=== PATIENT | female | born 1960 | race Asian ===

== ENCOUNTER → 2017-10-08 | Outpatient (CLI) | payer OTHER ==
--- NOTE | 2017-10-08 09:58 | WOMENS IMAGING REPORT ---
EXAM DESCRIPTION: BONE DENSITY HIP/SPINE COMPLETED DATE/TIME: 10/08/2017 9:08 am REASON FOR STUDY: SCREENING FOR OSTEOPROSIS; Z13.820 Z13.820 ENCOUNTER FOR SCREENING FOR OSTEOPOROS IS COMPARISON: None. TECHNIQUE: Dual-Energy X-ray Absorptiometry (DEXA) of the AP Spine, Hip, and Forearm. LIMITATIONS: None. FINDINGS: LUMBAR SPINE: Not imaged. Prior lumbar fusion. HIP: The bone mineral density (BMD) measured in the left hip correlates with a T-score of -0.1, which is n ormal as defined by the World Health Organization. FOREARM: The bone mineral density (BMD) measured in the left forearm correlates with a T-score of -1.6 which i s osteopenia as defined by the World Health Organization. IMPRESSION: 1. LUMBAR SPINE: Not imaged. 2. HIP: NORMAL. 3. FOREARM: OSTEOPENIA. COMMENT: The World Health Organization defines low BMD as follows: T-score: Normal: Greater than -1.0 Osteopenia: Between -1.0 and -2.5 Osteoporosis: Less than -2.5 without fractures Established osteoporosis: Less than -2.5 with fractures In general, you may wish to consider: Diagnosis Treatment Follow-up DEXA Normal BMD Prevention 2-3 years Osteopenia Prevention/Therapy 1-2 years Osteoporosis Therapy Yearly TECHNICAL DOCUMENTATION: JOB ID: [id number] [employer]- All Rights Reserved Reading location - IP/workstation name: [email or web address]
== END ==
LOC: WI 08:45
PROVIDERS: ATTEND Family Medicine
DX: Z13.820 Encounter for screening for osteoporosis (principal); M85.832 Other specified disorders of bone density and structure, left forearm
CPT/HCPCS: 77080

== ENCOUNTER 2017-10-20 14:21 | Emergency (ER) | payer OTHER ==
[2017-10-20] MEDS ORDERED: ONDANSETRON 4 MG TAB.RAPDIS PO ONE (16:27)
--- NOTE | 2017-10-20 16:28 | ER Document Report ---
ED Medical Screen (RME) - General Chief Complaint: Urinary Frequency Stated Complaint: FLANK PAIN Time Seen by Provider: 10/20/17 16:25 Notes: RAPID MEDICAL EVALUATION DISCLOSURE I have seen this patient as part of a Rapid Medical Evaluation and, if applicable, placed any initially appropriate orders. The patient will be seen and fully evaluated, including a full history and physical exam, by a provider ( in Main ED or Fast Track) when a room becomes available. 56-year-old female PMH pyelonephritis kidney stones here with complaints of right flank pain started several days ago with dysuria and urinary frequency nausea but no vomiting. She did see some blood in the urine today. EXAM No CVA tenderness Minimal lower quadrant TTP TRAVEL OUTSIDE OF THE U.S. IN LAST 30 DAYS: No - Related Data Allergies/Adverse Reactions: Sulfa (Sulfonamide Antibiotics) Allergy (Verified 10/20/17 16:18) Past Medical History - Social History Chew tobacco use (# tins/day): No Frequency of alcohol use: None Drug Abuse: None Renal/ Medical History: Denies: Hx Peritoneal Dialysis Physical Exam - Vital signs Vitals: Temp Pulse Resp BP Pulse Ox 98.6 F 69 16 148/71 H 97 10/20/17 14:42 10/20/17 14:42 10/20/17 14:42 10/20/17 14:42 10/20/17 14:42 Course - Vital Signs Vital signs: Temp Pulse Resp BP Pulse Ox 98.6 F 69 16 148/71 H 97 10/20/17 14:42 10/20/17 14:42 10/20/17 14:42 10/20/17 14:42 10/20/17 14:42
[2017-10-20 17:35] LABS: APPEARANCE,URINE CLEAR; BILIRUBIN,URINE NEGATIVE (NEGATIVE); COLOR,URINE STRAW; GLUCOSE, URINE NEGATIVE (NEGATIVE); KETONES,URINE NEGATIVE (NEGATIVE); LEUKOCYTE ESTERASE,URINE NEGATIVE (NEGATIVE); NITRITE,URINE NEGATIVE (NEGATIVE); PROTEIN,URINE NEGATIVE (NEGATIVE); URINE SPECIFIC GRAVITY 1.006; UROBILINOGEN,URINE NEGATIVE mg/dL (<2.0)
[2017-10-20 17:40] LABS: ABSOLUTE EOSINOPHILS # (AUTO) 0.1 10^3/uL (0.0-0.6); ABSOLUTE MONOCYTES (AUTO) 0.5 10^3/uL (0.1-1.4); ABSOLUTE NEUT (AUTO) 4.2 10^3/uL (1.7-8.2); BASOPHILS % (AUTO) 0.3 % (0-2); EOSINOPHILS % (AUTO) 1.7 % (0-6); HEMATOCRIT 44.5 % (36.0-47.0); HEMOGLOBIN 15.1 g/dL (12.0-15.5); LYMPHOCYTES % (AUTO) 37.8 % (13-45); MEAN CORPUSCULAR HEMOGLOBIN 29.7 pg (27.0-33.4); MEAN CORPUSCULAR HGB CONC 33.9 g/dL (32.0-36.0); MEAN CORPUSCULAR VOLUME 88 fl (80-97); MONOCYTES % (AUTO) 6.7 % (3-13); PLATELET COUNT 226 10^3/uL (150-450); RED BLOOD COUNT 5.09 10^6/uL (3.72-5.28); RED CELL DISTRIBUTION WIDTH 13.2 % (11.5-14.0); SEGMENTED NEUTROPHILS % (AUTO) 53.5 % (42-78); TOTAL CELLS COUNTED % (AUTO) 100 %; WHITE BLOOD COUNT 7.9 10^3/uL (4.0-10.5)
[2017-10-20 17:52] LABS: ALANINE AMINOTRANSFERASE 45 U/L (9-52); ALBUMIN 4.3 g/dL (3.5-5.0); ALKALINE PHOSPHATASE 99 U/L (38-126); ANION GAP 14 (5-19); ASPARTATE AMINO TRANSFERASE 37 U/L (14-36); BILIRUBIN,DIRECT 0.3 mg/dL (0.0-0.4); BILIRUBIN,TOTAL 0.6 mg/dL (0.2-1.3); BLOOD UREA NITROGEN 11 mg/dL (7-20); CALCIUM 9.8 mg/dL (8.4-10.2); CARBON DIOXIDE 31 mmol/L (22-30); CHLORIDE 98 mmol/L (98-107); GLUCOSE 88 mg/dL (75-110); POTASSIUM 4.5 mmol/L (3.6-5.0); SODIUM 142.6 mmol/L (137-145); TOTAL PROTEIN 7.7 g/dL (6.3-8.2)
--- NOTE | 2017-10-20 20:06 | ER Document Report ---
ED General - General Chief Complaint: Urinary Frequency Stated Complaint: FLANK PAIN Time Seen by Provider: 10/20/17 16:25 Notes: 56-year-old female PMH pyelonephritis kidney stones here with complaints of right flank pain started several days ago with dysuria and urinary frequency nausea but no vomiting. She did see some blood in the urine as well. She saw her PCP in [place] (she is moving here) who prescribed her Vicodin. TRAVEL OUTSIDE OF THE U.S. IN LAST 30 DAYS: No - Related Data Allergies/Adverse Reactions: Sulfa (Sulfonamide Antibiotics) Allergy (Verified 10/20/17 16:18) Past Medical History - Social History Smoking Status: Never Smoker Chew tobacco use (# tins/day): No Frequency of alcohol use: None Drug Abuse: None Family History: Reviewed & Not Pertinent Patient has suicidal ideation: No Patient has homicidal ideation: No Renal/ Medical History: Denies: Hx Peritoneal Dialysis Review of Systems - Review of Systems Notes: See history of present illness for pertinent positive review of systems; otherwise all review of systems have been reviewed and are negative Physical Exam - Vital signs Vitals: Temp Pulse Resp BP Pulse Ox 98.6 F 69 16 148/71 H 97 10/20/17 14:42 10/20/17 14:42 10/20/17 14:42 10/20/17 14:42 10/20/17 14:42 - Notes Notes: PHYSICAL EXAMINATION: GENERAL: Well-appearing and in no acute distress. HEAD: Atraumatic, normocephalic. EYES: Pupils equal round and reactive to light, extraocular movements intact, sclera anicteric, conjunctiva are normal. ENT: nares patent, oropharynx clear without exudates. Moist mucous membranes. NECK: Normal range of motion, supple without lymphadenopathy LUNGS: CTAB and equal. No wheezes rales or rhonchi. HEART: Regular rate and rhythm without murmurs ABDOMEN: Soft, minimal suprapubic tenderness. No CVA tenderness. No facial grimacing/wincing upon palpation. No guarding, no rebound or other peritoneal signs. EXTREMITIES: Normal range of motion, no pitting edema. No cyanosis. NEUROLOGICAL: Cranial nerves grossly intact. Normal sensory/motor exams. PSYCH: Normal mood, normal affect. SKIN: Warm, Dry, normal turgor, no rashes or lesions noted Course - Re-evaluation Re-evalutation: 10/20/17 20:06 MEDICAL DECISION MAKING: Concern for pyelonephritis versus ureteral calculi versus musculoskeletal strain Results reviewed there is no leukocytosis hemoglobin is normal electrolytes show normal creatinine urinalysis with blood but no infection I do not feel a CT is needed given her prior history of stones however I did offer the patient renal noncontrast CT but she declines She does not want any further pain medication and since she already has a prescription for Vicodin, will prescribe Flomax Zofran Instructed follow-up urology next day or few Patient understands and agrees to the plan of care - Vital Signs Vital signs: Temp Pulse Resp BP Pulse Ox 98.0 F 74 18 147/87 H 98 10/20/17 19:53 10/20/17 19:53 10/20/17 19:53 10/20/17 19:53 10/20/17 19:53 - Laboratory Result Diagrams: 10/20/17 17:10 10/20/17 17:10 Laboratory results interpreted by me: 10/20/17 10/20/17 14:43 17:10 Carbon Dioxide 31 H Creatinine 0.50 L AST 37 H Urine Blood SMALL H Discharge - Discharge Clinical Impression: Hematuria Qualifiers: Hematuria type: unspecified type Qualified Code(s): R31.9 - Hematuria, unspecified Condition: Good Disposition: HOME, SELF-CARE Additional Instructions: You were seen in the emergency department at [facility]. Use the Zofran as needed for nausea/vomiting. The Flomax will help to open up the ureteral tube. Please followup with your primary physician and/or urologist in the next few days for further management/evaluation. Please return to the emergency department for worsening of symptoms or any symptom that you deem to be concerning or life-threatening. Thank you for allowing us to be part of your care. Prescriptions: Ondansetron [Zofran Odt 4 mg Tablet] 1 - 2 tab PO Q4HP PRN #10 tab.rapdis PRN Reason: Tamsulosin HCl [Flomax 0.4 mg Cap.sr] 0.4 mg PO DAILY #7 cap.sr.24h Referrals: RITESH MARINO MD [DEDRICK SIDHU] - Follow up tomorrow
[2017-10-20 20:28] VITALS: BP 139/81
== END 2017-10-20 20:30 | disposition home or self-care (01) ==
LOC: ER 14:21
DX: R31.0 Gross hematuria (principal); R35.0 Frequency of micturition; R30.0 Dysuria; R11.0 Nausea; R10.819 Abdominal tenderness, unspecified site; Z87.440 Personal history of urinary (tract) infections; Z87.442 Personal history of urinary calculi; Z88.2 Allergy status to sulfonamides
CPT/HCPCS: 36415; 80053; 81001; 83690; 85025; 87086; 99284

== ENCOUNTER 2017-12-24 09:38 | Observation (INO) | payer OTHER ==
[2017-12-24] MEDS ORDERED: ASPIRIN 81 MG TABLET, CHEWABLE PO ONE (09:54)
--- NOTE | 2017-12-24 09:56 | ER Document Report ---
ED Medical Screen (RME) - General Chief Complaint: Chest Pain Stated Complaint: CHEST PAIN Time Seen by Provider: 12/24/17 09:54 Notes: 56 years old female with a history of hypertension, multiple PVCs, on metoprolol , was scheduled for stress test this morning, metoprolol was discontinued this morning. Around 630 she was starting to have chest pain intensity of 3/4 and 10. Persistent, increased in intensity on exertion therefore present to the ED. She also feeling multiple episodes of palpitation due to PVCs. Denies any left arm numbness tingling sensation nausea or vomiting. But short of breath on exertion. No fever chills or other constitutional symptoms On examination obesity-no reproducible chest wall pain lungs appears clear Electrocardiogram shows sinus rhythm at the rate of 80 bpm multiple PVCs, left axis deviation, no acute ST elevation or ST depression. TRAVEL OUTSIDE OF THE U.S. IN LAST 30 DAYS: No - Related Data Allergies/Adverse Reactions: Sulfa (Sulfonamide Antibiotics) Allergy (Verified 12/24/17 09:39) Past Medical History Renal/ Medical History: Denies: Hx Peritoneal Dialysis Doctor's Discharge - Discharge Referrals: KISHA DE LA TORRE MD [Primary Care Provider] - Follow up as needed
[2017-12-24] MEDS ORDERED: NITROGLYCERIN 2% OINTMENT 1 GM PACKET TP ONE (10:01)
[2017-12-24 10:22] LABS: ABSOLUTE EOSINOPHILS # (AUTO) 0.1 10^3/uL (0.0-0.6); ABSOLUTE LYMPHOCYTES (AUTO) 2.7 10^3/uL (0.5-4.7); ABSOLUTE MONOCYTES (AUTO) 0.5 10^3/uL (0.1-1.4); ABSOLUTE NEUT (AUTO) 5.6 10^3/uL (1.7-8.2); BASOPHILS % (AUTO) 0.4 % (0-2); EOSINOPHILS % (AUTO) 0.7 % (0-6); HEMATOCRIT 45.4 % (36.0-47.0); HEMOGLOBIN 15.5 g/dL (12.0-15.5); LYMPHOCYTES % (AUTO) 30.9 % (13-45); MEAN CORPUSCULAR HEMOGLOBIN 30.1 pg (27.0-33.4); MEAN CORPUSCULAR HGB CONC 34.2 g/dL (32.0-36.0); MEAN CORPUSCULAR VOLUME 88 fl (80-97); MONOCYTES % (AUTO) 5.1 % (3-13); PLATELET COUNT 239 10^3/uL (150-450); RED BLOOD COUNT 5.15 10^6/uL (3.72-5.28); RED CELL DISTRIBUTION WIDTH 13.2 % (11.5-14.0); SEGMENTED NEUTROPHILS % (AUTO) 62.9 % (42-78); TOTAL CELLS COUNTED % (AUTO) 100 %; WHITE BLOOD COUNT 8.9 10^3/uL (4.0-10.5)
[2017-12-24] MEDS ORDERED: METOPROLOL SUCCINATE 25 MG TAB.SR.24H PO ONE (10:33)
--- NOTE | 2017-12-24 10:39 | ER Document Report ---
ED Cardiac - General Chief Complaint: Chest Pain Stated Complaint: CHEST PAIN Time Seen by Provider: 12/24/17 09:54 Information source: Patient Notes: Patient is a 56-year-old female that presents today with some chest pain and palpitations. Patient states she has had this complaint for around 15 years. She states she only had one stress test without a cardiac catheterization 12 years ago. Patient recently moved here from [place] and saw a [facility] spectacle truer Dr. Amaral. She was on a Holter monitor for 3 weeks and found to have multiple PVCs. They increased her metoprolol from 25 mg in the morning to 25 mg in the morning and 12.5 mg at night. She was scheduled to have a stress test and an echocardiogram this morning. She was told to hold her morning dose of medications including a beta-jory. While she was getting ready for the test she told the technician test systems she was having some chest discomfort and the technician test systems did not perform the test and sent the patient to the emergency room. Patient states a maximum of 4 out of 10. No radiation. No aggravating or relieving factors. No calf pain, leg swelling, cough, shortness of breath, recent trips or travel. TRAVEL OUTSIDE OF THE U.S. IN LAST 30 DAYS: No - HPI Patient complains to provider of: Other - See above Was the onset of pain: Gradual Is the pain a: Chronic problem Chest pain location: Substernal Quality of pain: Mild, Cramping Chest pain radiation location: None Severity now: Mild Severity at worst: Mild Pain level currently: 2 Positive cardiac history: No Associated symptoms: Other - See above Exacerbated by: Denies Relieved by: Nothing Similar symptoms previously: Yes Recently seen / treated by doctor: Yes - Related Data Allergies/Adverse Reactions: Sulfa (Sulfonamide Antibiotics) Allergy (Verified 12/24/17 09:39) Past Medical History - General Information source: Patient - Social History Smoking Status: Never Smoker Cigarette use (# per day): No Chew tobacco use (# tins/day): No Smoking Education Provided: No Frequency of alcohol use: None Family History: Reviewed & Not Pertinent Renal/ Medical History: Denies: Hx Peritoneal Dialysis Review of Systems - Review of Systems Constitutional: denies: Fever EENT: denies: Eye discharge, Nose discharge Respiratory: denies: Short of breath Gastrointestinal: denies: Vomiting Genitourinary: denies: Dysuria Musculoskeletal: denies: Leg swelling Skin: Other - no hives. denies: Rash Neurological/Psychological: Other - no slurred speech -: Yes All other systems reviewed and negative Physical Exam - Vital signs Vitals: Pulse Ox 98 12/24/17 09:54 Interpretation: Normal Notes: Reviewed vital signs and nursing note as charted by RN. CONSTITUTIONAL: Alert and oriented and responds appropriately to questions. Well -appearing; well-nourished HEAD: Normocephalic; atraumatic NECK: Supple without meningismus; non-tender; no cervical lymphadenopathy, no masses CARD: Irregularly irregular; no murmurs, no clicks, no rubs, no gallops; symmetric distal pulses RESP: Normal chest excursion without splinting or tachypnea; breath sounds clear and equal bilaterally ABD/GI: Normal bowel sounds; elevated BMI; soft, non-tender BACK: The back appears normal and is non-tender to palpation EXT: Normal ROM in all joints; non-tender to palpation; no edema SKIN: Normal color for age and race; warm; dry; no acute lesions noted NEURO: Moves all extremities equally; Motor and sensory function intact PSYCH: The patient's mood and manner are appropriate. Grooming and personal hygiene are appropriate. Course - Re-evaluation Re-evalutation: 12/24/17 10:39 Given the history and physical examination we will place the patient on the monitor, obtain an EKG, provide aspirin, nitroglycerin, and the patient's morning dose of medications, and reassess. I do believe pulmonary embolism and aortic dissection to be unlikely. 12/24/17 10:41 EKG shows a heart of 80, normal sinus rhythm, left axis deviation, poor R-wave progression, PVC present, LVH present, no ST elevation or depression 12/24/17 11:16 I called the [place] office and was told he was in [place]. I called the [place] office and was told he was at [facility]. I have now called [facility]. 12/24/17 11:36 I have spoken directly with Dr. Amaral. He has asked that I admit the patient to the hospitalist with cardiology consultation here with the possibility of a stress test to be performed tomorrow morning at the patient has been ruled out. Dr. Amaral states that on the Holter monitor the patient had nonsustained episodes of ventricular tachycardia. I have called Dr. Mays our spectacle truer here as well as the hospitalist to admit the pt. - Vital Signs Vital signs: Temp Pulse Resp BP Pulse Ox 98 12/24/17 09:54 - Laboratory Result Diagrams: 12/24/17 10:05 12/24/17 10:05 Laboratory results interpreted by me: 12/24/17 10:05 Sodium 148.4 H Carbon Dioxide 32 H Glucose 112 H Discharge - Discharge Clinical Impression: Chest pain Qualifiers: Chest pain type: unspecified Qualified Code(s): R07.9 - Chest pain, unspecified Condition: Fair Disposition: ADMITTED OBSERVATION Admitting Provider: Hospitalist Unit Admitted: Telemetry Referrals: KISHA DE LA TORRE MD [Primary Care Provider] - Follow up as needed
[2017-12-24 10:41] LABS: ALANINE AMINOTRANSFERASE 33 U/L (9-52); ALBUMIN 4.4 g/dL (3.5-5.0); ALKALINE PHOSPHATASE 73 U/L (38-126); ANION GAP 15 (5-19); ASPARTATE AMINO TRANSFERASE 28 U/L (14-36); BILIRUBIN,DIRECT 0.3 mg/dL (0.0-0.4); BILIRUBIN,TOTAL 0.7 mg/dL (0.2-1.3); BLOOD UREA NITROGEN 15 mg/dL (7-20); CALCIUM 10.1 mg/dL (8.4-10.2); CARBON DIOXIDE 32 mmol/L (22-30); CHLORIDE 101 mmol/L (98-107); CREATINE KINASE 37 U/L (30-135); GLUCOSE 112 mg/dL (75-110); POTASSIUM 4.2 mmol/L (3.6-5.0); SODIUM 148.4 mmol/L (137-145); TOTAL PROTEIN 8.1 g/dL (6.3-8.2)
[2017-12-24 10:54] LABS: CREATINE KINASE MB 0.27 ng/mL (<4.55)
[2017-12-24 10:55] LABS: TROPONIN I < 0.012 ng/mL
--- NOTE | 2017-12-24 11:27 | RADIOLOGY REPORT (SQ) ---
EXAM DESCRIPTION: CHEST SINGLE VIEW COMPLETED DATE/TIME: 12/24/2017 11:19 am REASON FOR STUDY: Chest pain COMPARISON: None. EXAM PARAMETERS: NUMBER OF VIEWS: One view. TECHNIQUE: Single frontal radiographic view of the chest acquired. RADIATION DOSE: NA LIMITATIONS: None. FINDINGS: LUNGS AND PLEURA: No opacities, masses or pneumothorax. No pleural effusion. MEDIASTINUM AND HILAR STRUCTURES: No masses. Contour normal. HEART AND VASCULAR STRUCTURES: Heart normal in size. Normal vasculature. BONES: No acute findings. HARDWARE: None in the chest. OTHER: No other significant finding. IMPRESSION: NO ACUTE RADIOGRAPHIC FINDING IN THE CHEST. TECHNICAL DOCUMENTATION: JOB ID: [id number] [employer]- All Rights Reserved Reading location - IP/workstation name: [email or web address]
[2017-12-24] MEDS ORDERED: NITROGLYCERIN 0.4 MG/TAB 25 TAB/BOTTLE SL PRN (13:20)
[2017-12-24 14:38] LABS: AMORPHOUS SEDIMENT,URINE TRACE /HPF; APPEARANCE,URINE CLOUDY; BILIRUBIN,URINE NEGATIVE (NEGATIVE); COLOR,URINE YELLOW; GLUCOSE, URINE NEGATIVE (NEGATIVE); KETONES,URINE NEGATIVE (NEGATIVE); LEUKOCYTE ESTERASE,URINE NEGATIVE (NEGATIVE); NITRITE,URINE NEGATIVE (NEGATIVE); PROTEIN,URINE NEGATIVE (NEGATIVE); URINE SPECIFIC GRAVITY 1.023; UROBILINOGEN,URINE NEGATIVE mg/dL (<2.0)
[2017-12-24 15:09] LABS: CHOLESTEROL 237.87 mg/dL (0-200); TRIGLYCERIDES 182 mg/dL (<150)
--- NOTE | 2017-12-24 15:13 | EKG REPORT ---
SEVERITY:- ABNORMAL ECG - SINUS RHYTHM MULTIPLE VENTRICULAR PREMATURE COMPLEXES LEFT AXIS DEVIATION LEFT VENTRICULAR HYPERTROPHY : Confirmed by: Marilyn Rivera MD 24-Dec-2017 15:11:52
[2017-12-24 15:20] LABS: DIRECT LDL 142 mg/dL (<100)
[2017-12-24 15:23] LABS: VLDL CHOLESTEROL 36.4 mg/dL (10-31)
[2017-12-24 15:50] LABS: NT PRO BNP 80 pg/mL (5-900)
[2017-12-24 15:57] LABS: TROPONIN I < 0.012 ng/mL
[2017-12-24] MEDS: ACETAMINOPHEN 325 MG TABLET PO PRN (17:18)
[2017-12-24] MEDS ORDERED: MORPHINE SULFATE 10 MG/ML INJ IV PRN (18:28)
[2017-12-24] MEDS ORDERED: LANSOPRAZOLE 30 MG TAB.RAP.DR PO ONE (19:00)
[2017-12-24] MEDS ORDERED: ALPRAZOLAM 0.5 MG TABLET PO PRN (19:04)
--- NOTE | 2017-12-24 19:04 | PDOC H&P ---
History of Present Illness Admission Date/PCP: 12/24/17 12:10 KISHA DE LA TORRE MD Patient complains of: CHEST PAIN History of Present Illness: LEILA HIGGINS is a 56 year old female who presented to the emergency department with chest pain. She was scheduled for a routine stress test this morning, she was instructed not to take her morning dose of metoprolol. 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 This prompted the medical staff at the statistics teacher's office to send the patient to [facility] ED. PMH includes HTN and HLD. Patient recently moved to [place] from [place]. She established care with [facility]. Recently was wearing Holter monitor for palpitations, was wearing the monitor for approx. [address] Amaral states that on the Holter monitor the patient had nonsustained episodes of ventricular tachycardia. Her Metoprolol was increased from 25mg PO daily to 25mg PO QAM /12.5 mg PO QHS. Upon arrival to the ED, the patient was treated with PO aspirin 325mg, SL Nitro , and given her home dose of Metoprolol 25mg. EKG demonstrated NSR, no evidence of ischemia or infarction. Troponin<0.012. All other lab work benign. Vital signs wee within normal limits. CXR benign. The patient endorses chest pain relief after medications. Cardiology was consulted, plan for inpatient stress test and ECHOcardiogram tomorrow. Admit to hospitalist service for chest pain. Past Medical History Cardiac Medical History: Reports: Hyperlipidema, Hypertension Denies: Congestive Heart Failure, Myocardial Infarction Pulmonary Medical History: Denies: Asthma, Bronchitis, Chronic Obstructive Pulmonary Disease (COPD), Pneumonia, Tuberculosis Neurological Medical History: Denies: Seizures Renal/ Medical History: Denies: End Stage Renal Disease GI Medical History: Reports: Gastroesophageal Reflux Disease Denies: Cirrhosis Musculoskeltal Medical History: Denies: Arthritis Psychiatric Medical History: Reports: Depression Denies: Bipolar Disorder Hematology: Denies: Anemia, Bleeding Tendencies Past Surgical History Past Surgical History: Reports: Cholecystectomy, Hysterectomy, Other - HERNIA REPAIR. ECTOPIC . Social History Information Source: Patient Lives with: Family Smoking Status: Former Smoker Frequency of Alcohol Use: Rare Hx Recreational Drug Use: No Drugs: None Hx Prescription Drug Abuse: No - Advance Directive Resuscitation Status: Full Code Family History Family History: CAD Parental Family History Reviewed: Yes Children Family History Reviewed: Yes Sibling(s) Family History Reviewed.: Yes Medication/Allergy Home Medications: Aspirin [Adult Low Dose Aspirin EC] 81 mg PO QA 12/24/17 Ergocalciferol (Vitamin D2) [Drisdol 50,000 unit (1.25MG) Capsule] 50,000 unit PO TU 12/24/17 Hydrochlorothiazide [Hydrodiuril 25 mg Tablet] 25 mg PO QA 12/24/17 Hydrocodone/Acetaminophen [Purcell 5-325 Tablet] 1 tab PO BIDP PRN 12/24/17 Metoprolol Succinate [Toprol Xl 25 mg Tab.sr] 12.5 mg PO QPM 12/24/17 Metoprolol Succinate [Toprol Xl 25 mg Tab.sr] 25 mg PO [facility] 12/24/17 Omeprazole Magnesium [Prilosec Otc] 20 mg PO DAILYP PRN 12/24/17 Allergies/Adverse Reactions: Sulfa (Sulfonamide Antibiotics) Allergy (Verified 12/24/17 09:39) Review of Systems All systems: reviewed and no additional remarkable complaints except as stated Physical Exam Vital Signs: Temp Pulse Resp BP Pulse Ox 97.7 F 75 18 112/64 97 12/24/17 15:59 12/24/17 15:59 12/24/17 15:59 12/24/17 15:59 12/24/17 15:59 General appearance: PRESENT: no acute distress, morbidly obese Eye exam: PRESENT: conjunctiva pink, PERRLA Mouth exam: PRESENT: moist Teeth exam: PRESENT: poor dentation Neck exam: PRESENT: full ROM Respiratory exam: PRESENT: clear to auscultation mayuri, symmetrical, unlabored Cardiovascular exam: PRESENT: RRR, +S1, +S2 Pulses: PRESENT: normal radial pulses, normal dorsalis pedis pul GI/Abdominal exam: PRESENT: normal bowel sounds, soft. ABSENT: tenderness Rectal exam: PRESENT: deferred Extremities exam: PRESENT: full ROM. ABSENT: joint swelling Musculoskeletal exam: PRESENT: ambulatory, full ROM Neurological exam: PRESENT: alert, awake, oriented to person, oriented to place , oriented to time, oriented to situation Psychiatric exam: PRESENT: appropriate affect Skin exam: PRESENT: intact, normal color, warm Results Laboratory Results: 12/24/17 14:12 Urine Color YELLOW Urine Appearance CLOUDY Urine pH 6.0 Ur Specific [place] 1.023 Urine Protein NEGATIVE Urine Glucose (UA) NEGATIVE Urine Ketones NEGATIVE Urine Blood NEGATIVE Urine Nitrite NEGATIVE Ur Leukocyte Esterase NEGATIVE Urine WBC (Auto) 1 Urine RBC (Auto) 1 12/24/17 12/24/17 14:05 15:07 Troponin I Cancelled < 0.012 NT-Pro-B Natriuret Pep Cancelled 80 Impressions: Chest X-Ray 12/24/17 09:54 IMPRESSION: NO ACUTE RADIOGRAPHIC FINDING IN THE CHEST. Status: Imported from PACS Assessment & Plan - Diagnosis (1) Chest pain Qualifiers: Chest pain type: unspecified Qualified Code(s): R07.9 - Chest pain, unspecified Is this a current diagnosis for this admission?: Yes Plan: Unclear etiology, could be secondary to HTN, anxiety, arrythmia, palpitations Troponin < 0.012, continue to trend q6h x 3 EKG shows NSR no ischemia or infarction CXR benign Cardiology consulted ECHOcardiogram pending Plan for stress test tomorrow Aspirin therapy Home dose anti-HTN Treat atypical causes of chest pain: zantac BID for reflux. Xanax PRN for anxiety. Flexeril and tylenol PRN for musclular pain. (2) HTN (hypertension) Qualifiers: Hypertension type: essential hypertension Qualified Code(s): I10 - Essential (primary) hypertension Is this a current diagnosis for this admission?: Yes Plan: Patient endorses history of HTN Continue home dose metoprolol (3) HLD (hyperlipidemia) Is this a current diagnosis for this admission?: Yes Plan: Patient endorses history of HLD Unable to tolerate statin, managing with diet Lipid panel in a.m. - Time Time Spent: 30 to 50 Minutes Medications reviewed and adjusted accordingly: Yes Anticipated discharge: Home Within: within 72 hours - Inpatient Certification Based on my medical assessment, after consideration of the patient's comorbidities, presenting symptoms, or acuity I expect that the services needed warrant INPATIENT care.: Yes I certify that my determination is in accordance with my understanding of Medicare's requirements for reasonable and necessary INPATIENT services [42 CFR 412.3e].: Yes Medical Necessity: Risk of Complication if Not Cared For in Hospital - Plan Summary Plan Summary: ECHO AND STRESS TEST TOMORROW
[2017-12-24] MEDS ORDERED: CYCLOBENZAPRINE HCL 10 MG TABLET PO PRN (19:05)
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
[2017-12-24] MEDS: PANTOPRAZOLE SODIUM 40 MG VIAL IV SCH (22:01)
[2017-12-24] MEDS: METOPROLOL SUCCINATE 25 MG TAB.SR.24H PO SCH (22:02)
[2017-12-25 05:05] LABS: HEMATOCRIT 40.1 % (36.0-47.0); HEMOGLOBIN 13.5 g/dL (12.0-15.5); MEAN CORPUSCULAR HEMOGLOBIN 29.7 pg (27.0-33.4); MEAN CORPUSCULAR HGB CONC 33.8 g/dL (32.0-36.0); MEAN CORPUSCULAR VOLUME 88 fl (80-97); PLATELET COUNT 195 10^3/uL (150-450); RED BLOOD COUNT 4.55 10^6/uL (3.72-5.28); RED CELL DISTRIBUTION WIDTH 13.4 % (11.5-14.0); WHITE BLOOD COUNT 6.8 10^3/uL (4.0-10.5)
[2017-12-25 05:18] LABS: ALANINE AMINOTRANSFERASE 31 U/L (9-52); ALBUMIN 3.6 g/dL (3.5-5.0); ALKALINE PHOSPHATASE 71 U/L (38-126); ANION GAP 12 (5-19); ASPARTATE AMINO TRANSFERASE 28 U/L (14-36); BILIRUBIN,DIRECT 0.3 mg/dL (0.0-0.4); BILIRUBIN,TOTAL 0.5 mg/dL (0.2-1.3); BLOOD UREA NITROGEN 18 mg/dL (7-20); CALCIUM 9.1 mg/dL (8.4-10.2); CARBON DIOXIDE 27 mmol/L (22-30); CHLORIDE 105 mmol/L (98-107); CHOLESTEROL 208.52 mg/dL (0-200); GLUCOSE 103 mg/dL (75-110); SODIUM 143.8 mmol/L (137-145); TOTAL PROTEIN 6.9 g/dL (6.3-8.2); TRIGLYCERIDES 145 mg/dL (<150)
[2017-12-25 05:32] LABS: DIRECT LDL 122 mg/dL (<100)
[2017-12-25] MEDS: LANSOPRAZOLE 30 MG TAB.RAP.DR PO SCH ×2 (06:15→17:23)
--- NOTE | 2017-12-25 07:53 | EKG REPORT ---
SEVERITY:- ABNORMAL ECG - SINUS RHYTHM FIRST DEGREE AV BLOCK PROBABLE LEFT ATRIAL ABNORMALITY LEFT AXIS DEVIATION CONSIDER ANTEROSEPTAL INFARCT : Confirmed by: Marilyn Rivera MD 25-Dec-2017 07:52:25
[2017-12-25] MEDS: ACETAMINOPHEN 325 MG TABLET PO PRN (11:35)
[2017-12-25] MEDS: PANTOPRAZOLE SODIUM 40 MG VIAL IV SCH ×2 (11:35→21:21)
[2017-12-25] MEDS: ASPIRIN 81 MG TABLET, CHEWABLE PO SCH (11:35)
[2017-12-25] MEDS: METOPROLOL SUCCINATE 25 MG TAB.SR.24H PO SCH ×2 (11:36→21:22)
[2017-12-25] MEDS: ENOXAPARIN SODIUM INJ 30 MG/0.3 ML DISP.SYRIN SUBCUT SCH (11:36)
[2017-12-25] MEDS ORDERED: REGADENOSON INJ 0.4 MG/5 ML DISP.SYRIN IV ONE (12:43)
--- NOTE | 2017-12-25 18:44 | DRAGON STRESS TEST REPORT ---
INTRAVENOUS LEXISCAN CARDIOLITE STRESS TEST USING SINGLE PHOTON EMMISION COMPUTERIZED TOMOGRAPHIC. DATE OF PROCEDURE: December 25, 2017, INDICATION : Chest pain CARDIAC RISK FACTORS: Hypertension, dyslipidemia, family history of CAD RESTING EKG: Sinus rhythm without any baseline ST-T wave changes STRESS EKG: No significant ST segment changes noted with LexiScan bolus REASON FOR TERMINATION: Protocol. PROCEDURE REPORT: Baseline heart rate 71 beats per minute with blood pressure of 120/69. Patient had no significant complaints. Patient was bolused with Lexiscan 0.4 mg intravenously followed by saline bolus. Heart rate at 2 minutes post bolus 90 with a blood pressure of 129/60. 3 minutes post bolus heart rate 90 with blood pressure of 109/71. No significant EKG changes were noted. Patient had no significant complaints during the procedure or postprocedure. CONCLUSIONS: Normal EKG and hemodynamic response to IV LexiScan. NUCLEAR DATA: At rest the patient was given 14.88 millicuries of technetium 99 sestamibi injected intravenously. As per protocol rest gated SPECT images were obtained. On day of stress test, the patient was given intravenous LexiScan at a dose of 0.4 mg in 5 mL intravenously, followed by flush with normal saline. Subsequently the stress dose of 41.7 millicuries of technetium 99 sestamibi was injected intravenously. As per protocol stress gated images were obtained. NUCLEAR INTERPRETATION: Both raw and processed data were used for interpretation. Visual, qualitative, computer-generated quantitative data was used. Quality of images was somewhat suboptimal. Images were processed without attenuation correction. Motion artifact and soft tissue attenuations were noted. Increased visceral uptake was noted. Also significant breast attenuation artifacts were noted. No definitive areas of transient perfusion defect noted, No definitive areas of fixed perfusion defect or scars noted. There was mild decreased uptake was noted in the distal anterior wall in both rest and stress images but felt to be mostly artifactual. EKG gated imaging showed LV EF at 55 %, rest and stress gated EF similar visually. T. I D. ratio was 0.95. Lung heart ratio noted to be within normal limits 0.37. No significant extracardiac and abnormal radiotracer activities were noted. RV free wall uptake was noted to be WNL. IMPRESSION: Also refer to comments under nuclear interpretation. Also test results needs to be interpreted in the context of pretest probability. Image quality is somewhat suboptimal and not motion or attenuation corrected. Clinical correlation is therefore requested. 1. No definitive areas of transient perfusion defect noted. 2. There is no definitive scintigraphic evidence of myocardial infarction/scar. 3. EKG gated imaging shows left ventricular ejection fraction of approx. 55 %. 4. Clinical correlation requested as occasionally single vessel disease or balanced ischemia could be missed. In approximately 10% of the cases Lexiscan may not cause adequate vasodilatory stress. RECOMMENDATIONS: Aggressive risk factor modification and medical management. Further evaluation may be needed if continued symptoms or other high risk indicators are noted on clinical evaluation. Close cardiology follow-up is also recommended. Clinical correlation with echocardiogram derived ejection fraction. Inability to exercise by itself can lead to increased cardiovascular event risks. Consider cardiology consultation and or follow-up if clinically indicated. 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 Dr. Misti Mays. MRCP Board certified in cardiology and sleep medicine. Board certified in nuclear cardiology, adult echocardiography. BENITA
--- NOTE | 2017-12-25 18:47 | PDOC PROGRESS REPORT ---
Subjective Progress Note for:: 12/25/17 Subjective:: 56 y.o. F with PMH HTN and GERD admitted to [facility] for chest pain. Patient was seen this morning following her stress test. The patient states that she has no chest pain today following administration of her morning dose of Zantac and one IV dose of Protonix. The patient endorses a history of GERD but states she only takes Prevacid as needed. Upon assessment, S1S2, lungs clear to auscultation, palpable pulses in upper and lower extremities, no evidence of peripheral edema. Mild tenderness to the epigastric area, but patient reports history of hiatal hernia. Currently awaiting results of today's stress test and echocardiogram. If negative, plan to discharge home within 24 hours. Reason For Visit: CHEST PAIN Physical Exam Vital Signs: Temp Pulse Resp BP Pulse Ox 97.6 F 67 19 101/74 97 12/25/17 15:27 12/25/17 15:27 12/25/17 15:27 12/25/17 15:27 12/25/17 15:27 Intake & Output 12/24/17 12/25/17 12/26/17 06:59 06:59 06:59 Intake Total 200 551 Balance 200 551 Weight 105.4 kg General appearance: PRESENT: no acute distress, well-developed, well-nourished Head exam: PRESENT: atraumatic, normocephalic Eye exam: PRESENT: conjunctiva pink, EOMI, PERRLA. ABSENT: scleral icterus Ear exam: PRESENT: normal external ear exam Mouth exam: PRESENT: moist, tongue midline Neck exam: ABSENT: carotid bruit, JVD, lymphadenopathy, thyromegaly Respiratory exam: PRESENT: clear to auscultation mayuri. ABSENT: rales, rhonchi, wheezes Cardiovascular exam: PRESENT: RRR. ABSENT: diastolic murmur, rubs, systolic murmur Pulses: PRESENT: normal dorsalis pedis pul Vascular exam: PRESENT: normal capillary refill GI/Abdominal exam: PRESENT: normal bowel sounds, soft, tenderness - TO EPIGASTRIC AREA. PATIENT REPORTS HISTORY OF HIATAL HERNIA. ABSENT: distended, guarding, mass, organolmegaly, rebound Rectal exam: PRESENT: deferred Extremities exam: PRESENT: full ROM. ABSENT: calf tenderness, clubbing, pedal edema Neurological exam: PRESENT: alert, awake, oriented to person, oriented to place , oriented to time, oriented to situation Psychiatric exam: PRESENT: appropriate affect, normal mood Skin exam: PRESENT: dry, intact, warm Results Laboratory Results: 12/25/17 04:02 12/25/17 04:02 12/25/17 12/25/17 12/25/17 04:02 04:02 04:02 WBC 6.8 RBC 4.55 Hgb 13.5 Hct 40.1 MCV 88 MCH 29.7 MCHC 33.8 RDW 13.4 Plt Count 195 Sodium 143.8 Potassium 4.0 Chloride 105 Carbon Dioxide 27 Anion Gap 12 BUN 18 Creatinine 0.57 Est GFR ( Amer) > 60 Est GFR (Non-Af Amer) > 60 Glucose 103 Calcium 9.1 Total Bilirubin 0.5 AST 28 ALT 31 Alkaline Phosphatase 71 Total Protein 6.9 Albumin 3.6 Triglycerides 145 Cholesterol 208.52 H LDL Cholesterol Direct 122 H VLDL Cholesterol 29.0 HDL Cholesterol 41 TSH 1.53 12/24/17 12/24/17 12/24/17 14:05 15:07 21:55 Troponin I Cancelled < 0.012 < 0.012 NT-Pro-B Natriuret Pep Cancelled 80 12/25/17 04:02 Troponin I NT-Pro-B Natriuret Pep 46 Impressions: Chest X-Ray 12/24/17 09:54 IMPRESSION: NO ACUTE RADIOGRAPHIC FINDING IN THE CHEST. Status: Imported from PACS Assessment & Plan - Diagnosis (1) Chest pain Qualifiers: Chest pain type: unspecified Qualified Code(s): R07.9 - Chest pain, unspecified Is this a current diagnosis for this admission?: Yes Plan: Unclear etiology, could be secondary to HTN, anxiety, arrythmia, palpitations Troponin < 0.012, cno longer trending EKG shows NSR no ischemia or infarction CXR benign Cardiology consulted ECHOcardiogram pending Stress test complete, results pending Aspirin therapy Home dose anti-HTN Treat atypical causes of chest pain: zantac BID for reflux. Xanax PRN for anxiety. Flexeril and tylenol PRN for musclular pain. (2) HTN (hypertension) Qualifiers: Hypertension type: essential hypertension Qualified Code(s): I10 - Essential (primary) hypertension Is this a current diagnosis for this admission?: Yes Plan: Patient endorses history of HTN Continue home dose metoprolol (3) HLD (hyperlipidemia) Is this a current diagnosis for this admission?: Yes Plan: Patient endorses history of HLD Unable to tolerate statin, managing with diet Lipid panel in a.m. - Time Time Spent with patient: 15-24 minutes Medications reviewed and adjusted accordingly: Yes Anticipated discharge: Home Within: within 24 hours - Inpatient Certification Based on my medical assessment, after consideration of the patient's comorbidities, presenting symptoms, or acuity I expect that the services needed warrant INPATIENT care.: Yes I certify that my determination is in accordance with my understanding of Medicare's requirements for reasonable and necessary INPATIENT services [42 CFR 412.3e].: Yes Medical Necessity: Risk of Complication if Not Cared For in Hospital
--- NOTE | 2017-12-25 20:38 | PDOC PROGRESS REPORT ---
Subjective Progress Note for:: 12/25/17 Subjective:: Patient seems to be doing better with gradual improvement. Pt is denying any chest arm or neck discomfort. Patient denying any PND, orthopnea. Patient denied any sustained palpitations, dizziness, syncope, near syncope. Patient denying any fever chills. Patient denying any other significant discomfort. Patient is maintaining sinus rhythm. Review of systems: Rest review of systems negative. Medications: Medications have been reviewed. Reason For Visit: CHEST PAIN Physical Exam Vital Signs: Temp Pulse Resp BP Pulse Ox 97.7 F 65 16 115/79 95 12/25/17 19:41 12/25/17 19:41 12/25/17 19:41 12/25/17 19:41 12/25/17 19:41 Intake & Output 12/24/17 12/25/17 12/26/17 06:59 06:59 06:59 Intake Total 200 551 Balance 200 551 Weight 105.4 kg Exam: GENERAL: well-nourished and in no acute distress. Alert and oriented x3 HEAD: Atraumatic, normocephalic. EYES: Pupils equal round and reactive to light, extraocular movements intact, sclera anicteric, conjunctiva are normal. ENT: TMs normal, nares patent, oropharynx clear without exudates. Moist mucous membranes. No oral ulcerations or bleeding gums noted NECK: supple without lymphadenopathy. Trachea is central. No cervical or axillary lymphadenopathy noted. Carotids are 2+, JVD WNL LUNGS: Respiration seems nonlabored, no significant accessory muscle action noted. Breath sounds clear to auscultation bilaterally and equal noted. No wheezes rales or rhonchi noted. No significant dullness noted on percussion. CHEST: Palpation of the chest wall shows no significant chest wall tenderness. 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 ABDOMEN: Soft, no significant tenderness appreciated, normoactive bowel sounds. No guarding, no rebound. No rigidity noted . No masses appreciated. EXTREMITIES: Pedal pulses are 1-2+, no calf tenderness noted. No clubbing or cyanosis. negative pedal edema noted NEUROLOGICAL: Focused neurological exam showed no significant neurologic deficit. Normal speech, no focal weakness appreciated. PSYCH: Normal mood, normal affect. Judgment and insight within normal limits. SKIN: No significant ecchymosis, skin is noted to be warm. MUSCULOSKELETAL EXAM: No significant acute joint swelling noted. Results Laboratory Results: 12/25/17 04:02 12/25/17 04:02 12/25/17 12/25/17 12/25/17 04:02 04:02 04:02 WBC 6.8 RBC 4.55 Hgb 13.5 Hct 40.1 MCV 88 MCH 29.7 MCHC 33.8 RDW 13.4 Plt Count 195 Sodium 143.8 Potassium 4.0 Chloride 105 Carbon Dioxide 27 Anion Gap 12 BUN 18 Creatinine 0.57 Est GFR ( Amer) > 60 Est GFR (Non-Af Amer) > 60 Glucose 103 Calcium 9.1 Total Bilirubin 0.5 AST 28 ALT 31 Alkaline Phosphatase 71 Total Protein 6.9 Albumin 3.6 Triglycerides 145 Cholesterol 208.52 H LDL Cholesterol Direct 122 H VLDL Cholesterol 29.0 HDL Cholesterol 41 TSH 1.53 12/24/17 12/24/17 12/24/17 14:05 15:07 21:55 Troponin I Cancelled < 0.012 < 0.012 NT-Pro-B Natriuret Pep Cancelled 80 12/25/17 04:02 Troponin I NT-Pro-B Natriuret Pep 46 EKG Comments: Telemetry shows sinus rhythm without any sustained tachycardia or bradycardia. Impressions: Chest X-Ray 12/24/17 09:54 IMPRESSION: NO ACUTE RADIOGRAPHIC FINDING IN THE CHEST. Assessment & Plan - Diagnosis (1) Chest pain Qualifiers: Chest pain type: unspecified Qualified Code(s): R07.9 - Chest pain, unspecified Is this a current diagnosis for this admission?: Yes (2) Gastroesophageal reflux disease Qualifiers: Esophagitis presence: esophagitis presence not specified Qualified Code(s) : K21.9 - Gastro-esophageal reflux disease without esophagitis Is this a current diagnosis for this admission?: Yes (3) Obesity Qualifiers: Obesity type: unspecified obesity type Obesity classification: unspecified obesity classification Serious obesity comorbidity presence: unspecified whether serious comorbidity present Qualified Code(s): E66.9 - Obesity, unspecified Is this a current diagnosis for this admission?: Yes (4) HLD (hyperlipidemia) Qualifiers: Hyperlipidemia type: unspecified Qualified Code(s): E78.5 - Hyperlipidemia , unspecified Is this a current diagnosis for this admission?: Yes (5) HTN (hypertension) Qualifiers: Hypertension type: essential hypertension Qualified Code(s): I10 - Essential (primary) hypertension Is this a current diagnosis for this admission?: Yes - Notes Notes: Chest pain: This was evaluated with a nuclear stress test. No significant ischemia noted. No definite fixed defect noted. Nuclear image quality was somewhat suboptimal. Patient chest pain resolved with IV Protonix therefore likely to be related to gastroesophageal reflux. Patient should follow-up with her primary care mortgage loan originator and further management plans could be instituted by the mortgage loan originator. At this point patient is being advised aggressive risk factor modification and medical management. Blood pressure goal in this patient is 140/90 or less. This was discussed with the patient. Currently blood pressure under reasonable control. Better medication for this patient are CHARO inhibitor/ARB/beta jory etc. discussed side effects of uncontrolled hypertension and also severe hypotension. Hyperlipidemia: LDL goal is less than 70. Recommend statin therapy at least intermediate or high dose, of high potency status. Periodic lipid panel and liver panel is indicated. Patient to report any significant muscle discomfort or other side effects. Gastroesophageal reflux: Patient has this condition. Recommend proton pump inhibitor, weight loss, small meals etc. Obesity: Patient advised in gradual weight loss. - Time Time with patient: Greater than 35 minutes - Patient was seen multiple times. Total time exceeds 40 minutes. In the morning nuclear stress test procedure, risks benefits, alternatives were discussed. Patient seen during the stress test. Patient also seen after stress test when results were discussed with the patient in detail. Patient's questions were answered. Nuclear stress test results were discussed with the patient. Patient was informed that no definitive evidence of pharmacologic stress-induced ischemia noted. No definite fixed defects were noted. Patient informed that occasionally significant single vessel disease or balanced ischemia could be missed. However based on the current study results, would recommend aggressive risk factor modification and medical therapy. It may also be worthwhile to consider evaluation or empiric management of other causes of chest pain. Should no other cause be found and if persistent in having chest pain, then cardiac catheterization should be considered. Right now, recommendations are for aggressive risk factor modification and medical management. More than 50% of the time spent coordinating care, discussing management plans with involved caregivers. Management plans discussed with involved personnels. Medical decision making was of moderate to high complexity, patient's has multiple comorbidities. Medications reviewed and adjusted accordingly: Yes
[2017-12-26] MEDS: LANSOPRAZOLE 30 MG TAB.RAP.DR PO SCH (05:04)
[2017-12-26] MEDS ORDERED: LANSOPRAZOLE 30 MG TAB.RAP.DR PO ONE (09:30)
--- NOTE | 2017-12-26 09:50 | XCELERA REPORT ---
[address] [address] Transthoracic Echocardiogram Report Name: LEILA HIGGINS Age: 56 yrs Gender: Female : 1960 Patient Status: Inpatient Patient Location: [address] [place] [address] Study Date: 12/25/2017 03:38 PM Procedure: A complete two-dimensional transthoracic echocardiogram was performed (2D, M-mode, spectral and color flow Doppler). The study was technically difficult with many images being suboptimal in quality. Reason For Study: cp Ordering Physician: JARETH MICHAUD Performed By: Pamela Bach Interpretation Summary The left ventricular ejection fraction is normal. Doppler measurements suggest impaired left ventricular relaxation, which is associated with grade I/IV or mild diastolic dysfunction There is borderline concentric left ventricular hypertrophy. The left ventricle is grossly normal size. Wall motion cannot be accurately commented on, but no definite regional wall motion abnormalities noted. The right ventricular systolic function is normal. The right ventricle is borderline dilated. The right atrium is normal in size The left atrial size is normal. There is no mitral regurgitation noted. There is no mitral valve stenosis. No aortic regurgitation is present. There is no aortic valve stenosis No tricuspid regurgitation. There is no tricuspid stenosis. The aortic root is not well visualized but is probably normal size. The inferior vena cava was not well visualized There is no pericardial effusion. MMode/2D Measurements & Calculations RVDd: 2.6 cm LVIDd: 6.0 cm FS: 39.2 % Ao root diam: 2.2 cm IVSd: 0.84 cm LVIDs: 3.6 cm EDV(Teich): 177.6 mlAo root area: 3.8 cm2 LVPWd: 0.73 cmESV(Teich): 55.4 ml EF(Teich): 68.8 % LVOT diam: 1.5 cm LVOT area: 1.7 cm2 Doppler Measurements & Calculations MV E max tomer: MV dec slope: Ao V2 max: LV V1 max P.7 cm/sec 179.5 cm/sec 3.0 mmHg MV A max tomer: 288.0 cm/sec2 Ao max PG: LV V1 max: 115.5 cm/sec MV dec time: 12.9 mmHg 86.0 cm/sec MV E/A: 0.79 0.32 sec ANILA(V,D): 0.82 cm2 PA V2 max: 92.1 cm/sec PA max P.4 mmHg Left Ventricle The left ventricle is grossly normal size. There is borderline concentric left ventricular hypertrophy. The left ventricular ejection fraction is normal. Doppler measurements suggest impaired left ventricular relaxation, which is associated with grade I/IV or mild diastolic dysfunction. Wall motion cannot be accurately commented on, but no definite regional wall motion abnormalities noted. Right Ventricle The right ventricle is borderline dilated. There is normal right ventricular wall thickness. The right ventricular systolic function is normal. Atria The right atrium is normal in size. The left atrial size is normal. Interarterial septum not well visualized and not well dopplered. Cannot comment on ASD/PFO presence. Mitral Valve The mitral valve is grossly normal. There is no mitral valve stenosis. There is no mitral regurgitation noted. Aortic Valve The aortic valve is not well visualized secondary to technical limitations. There is no aortic valve stenosis. No aortic regurgitation is present. Tricuspid Valve The tricuspid valve is not well visualized secondary to technical limitations. There is no tricuspid stenosis. No tricuspid regurgitation. Pulmonic Valve The pulmonic valve is not well visualized. Great Vessels The aortic root is not well visualized but is probably normal size. The inferior vena cava was not well visualized. Effusions There is no pericardial effusion. : JARETH MICHAUD > Jareth Michaud
[2017-12-26] MEDS: ASPIRIN 81 MG TABLET, CHEWABLE PO SCH (10:38)
[2017-12-26] MEDS: METOPROLOL SUCCINATE 25 MG TAB.SR.24H PO SCH (10:38)
[2017-12-26] MEDS: PANTOPRAZOLE SODIUM 40 MG VIAL IV SCH (10:39)
[2017-12-26] MEDS: ENOXAPARIN SODIUM INJ 30 MG/0.3 ML DISP.SYRIN SUBCUT SCH (10:39)
[2017-12-26 11:29] VITALS: BP 112/59
--- NOTE | 2017-12-26 18:40 | PDOC CONSULTATION ---
Consultation Consult Date: 12/24/17 Attending physician:: VANGIE DEAN Consult reason:: CP History of Present Illness Admission Date/PCP: 12/24/17 12:10 KISHA DE LA TORRE MD Patient complains of: Chest pain History of Present Illness: LEILA HIGGINS is a 56 year old female who presented to the emergency department with chest pain. She was scheduled for a routine stress test this morning, she was instructed not to take her morning dose of metoprolol. The patient showed up to her accounts specialist's office complaining of shortness of breath and chest tightness. This prompted the medical staff at the accounts specialist's office to send the patient to [facility] ED. PMH includes HTN and HLD. Patient recently moved to [place] from [place]. She established care with PHYLLIS Hwang Draw Frame Tender. Recently was wearing Holter monitor for palpitations, was wearing the monitor for approx. [address] Amaral states that on the Holter monitor the patient had nonsustained episodes of ventricular tachycardia. Her Metoprolol was increased from 25mg PO daily to 25mg PO QAM /12.5 mg PO QHS. Upon arrival to the ED, the patient was treated with PO aspirin 325mg, SL Nitro , and given her home dose of Metoprolol 25mg. EKG demonstrated NSR, no evidence of ischemia or infarction. Troponin<0.012. All other lab work benign. Vital signs wee within normal limits. CXR benign. The patient endorses chest pain relief after medications. Cardiology was consulted, plan for inpatient stress test and ECHOcardiogram tomorrow. Admit to hospitalist service for chest pain. This history obtained by the hospitalist was reviewed and confirmed. Patient describes that she was having some arrhythmias on the cardiac monitoring but not sure what kind. Patient denied any episodes of syncope, near syncope. Patient was actually in the nuclear stress department at the hospital initially and then sent over to the emergency room because of complaints of chest pain. Patient denies any prior history of myocardial infarction, angina, congestive heart failure but does give history of arrhythmias and significant problems with heartburn. Past Medical History Cardiac Medical History: Reports: Hyperlipidema, Hypertension Denies: Congestive Heart Failure, Myocardial Infarction Pulmonary Medical History: Denies: Asthma, Bronchitis, Chronic Obstructive Pulmonary Disease (COPD), Pneumonia, Tuberculosis Neurological Medical History: Denies: Seizures Renal/ Medical History: Denies: End Stage Renal Disease GI Medical History: Reports: Gastroesophageal Reflux Disease Denies: Cirrhosis Musculoskeltal Medical History: Denies: Arthritis Psychiatric Medical History: Reports: Depression Denies: Bipolar Disorder Hematology: Denies: Anemia, Bleeding Tendencies Past Surgical History Past Surgical History: Reports: Cholecystectomy, Hysterectomy, Other - HERNIA REPAIR. ECTOPIC . Social History Information Source: Patient Lives with: Family Smoking Status: Former Smoker Frequency of Alcohol Use: Rare Hx Recreational Drug Use: No Drugs: None Hx Prescription Drug Abuse: No - Advance Directive Resuscitation Status: Full Code Surrogate healthcare decision maker:: Patient's daughter is the surrogate decision-maker Family History Family History: CAD Parental Family History Reviewed: Yes Children Family History Reviewed: Yes Sibling(s) Family History Reviewed.: Yes Medication/Allergy Home Medications: Aspirin [Adult Low Dose Aspirin EC] 81 mg PO [facility] 12/24/17 Ergocalciferol (Vitamin D2) [Drisdol 50,000 unit (1.25MG) Capsule] 50,000 unit PO TU 12/24/17 Hydrochlorothiazide [Hydrodiuril 25 mg Tablet] 25 mg PO QA 12/24/17 Hydrocodone/Acetaminophen [[place] 5-325 Tablet] 1 tab PO BIDP PRN 12/24/17 Metoprolol Succinate [Toprol Xl 25 mg Tab.sr] 12.5 mg PO QPM 12/24/17 Metoprolol Succinate [Toprol Xl 25 mg Tab.sr] 25 mg PO QA 12/24/17 Omeprazole Magnesium [Prilosec Otc] 20 mg PO DAILYP PRN 12/24/17 Metoprolol Succinate [Toprol Xl 25 mg Tab.sr] 12.5 mg PO QHS tab.sr.24h Metoprolol Succinate [Toprol Xl 25 mg Tab.sr] 25 mg PO DAILY tab.sr.24h Allergies/Adverse Reactions: Sulfa (Sulfonamide Antibiotics) Allergy (Verified 12/24/17 09:39) Review of Systems Review of Systems: Please see history of present illness and past medical history as wall. Constitutional: No fever or chills reported. Head : No recent chronic headaches, recent head injury. Eyes: No recent eye pain, diplopia, redness, discharge, acute visual changes. Ears: No recent chronic ear pain, acute hearing loss, ear discharge. Oral cavity: No recent ulcerations, bleeding, oral cavity discomfort. Neck: No recent acute neck pain reported. Hematologic: No recent easy bruising or bleeding. Lymphatic: No recent lymph node enlargement reported. Cardiovascular system review: See history of present illness. Respiratory system review: No hemoptysis or blood clots in the lungs reported. Mild Shortness of breath on exertion Gastrointestinal system review: Negative for any recent acute hematemesis, melena. Genitourinary system review: No recent acute or chronic hematuria, flank pain, UTI etc. reported. Skin system review: Negative for any recent abnormal bruising, no rash, no pruritus reported. Neurologic: No prior history of strokes, mini strokes, seizure disorder. Psychologic: No history of major psychosis or major depression reported. Musculoskeletal: Minor aches and pains reported. No acute joint swelling reported. Endocrine: No recent polyuria, polydipsia, recent heat or cold intolerance. Physical Exam Vital Signs: Temp Pulse Resp BP Pulse Ox 97.7 F 75 18 112/64 97 12/24/17 15:59 12/24/17 15:59 12/24/17 15:59 12/24/17 15:59 12/24/17 15:59 Exam: GENERAL: well-nourished and in no acute distress. Alert and oriented x3 HEAD: Atraumatic, normocephalic. EYES: Pupils equal round and reactive to light, extraocular movements intact, sclera anicteric, conjunctiva are normal. ENT: TMs normal, nares patent, oropharynx clear without exudates. Moist mucous membranes. No oral ulcerations or bleeding gums noted NECK: supple without lymphadenopathy. Trachea is central. No cervical or axillary lymphadenopathy noted. Carotids are 2+, JVD WNL LUNGS: Respiration seems nonlabored, no significant accessory muscle action noted. Breath sounds clear to auscultation bilaterally and equal noted. No wheezes rales or rhonchi noted. No significant dullness noted on percussion. CHEST: Palpation of the chest wall shows no significant chest wall tenderness. 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 ABDOMEN: Soft, no significant tenderness appreciated, normoactive bowel sounds. No guarding, no rebound. No rigidity noted . No masses appreciated. EXTREMITIES: Pedal pulses are 1-2+, no calf tenderness noted. No clubbing or cyanosis. negative pedal edema noted NEUROLOGICAL: Focused neurological exam showed no significant neurologic deficit. Normal speech, no focal weakness appreciated. PSYCH: Normal mood, normal affect. Judgment and insight within normal limits. SKIN: No significant ecchymosis, skin is noted to be warm. MUSCULOSKELETAL EXAM: No significant acute joint swelling noted. Results Laboratory Results: 12/24/17 14:12 Urine Color YELLOW Urine Appearance CLOUDY Urine pH 6.0 Ur Specific [place] 1.023 Urine Protein NEGATIVE Urine Glucose (UA) NEGATIVE Urine Ketones NEGATIVE Urine Blood NEGATIVE Urine Nitrite NEGATIVE Ur Leukocyte Esterase NEGATIVE Urine WBC (Auto) 1 Urine RBC (Auto) 1 12/24/17 12/24/17 14:05 15:07 Troponin I Cancelled < 0.012 NT-Pro-B Natriuret Pep Cancelled 80 EKG Comments: Shows sinus rhythm, occasional VPCs, no acute ST-T wave changes are noted Impressions: Chest X-Ray 12/24/17 09:54 IMPRESSION: NO ACUTE RADIOGRAPHIC FINDING IN THE CHEST. Assessment & Plan - Diagnosis (1) Chest pain Qualifiers: Chest pain type: unspecified Qualified Code(s): R07.9 - Chest pain, unspecified Is this a current diagnosis for this admission?: Yes (2) Gastroesophageal reflux disease Qualifiers: Esophagitis presence: esophagitis presence not specified Qualified Code(s) : K21.9 - Gastro-esophageal reflux disease without esophagitis Is this a current diagnosis for this admission?: Yes (3) HLD (hyperlipidemia) Qualifiers: Hyperlipidemia type: unspecified Qualified Code(s): E78.5 - Hyperlipidemia , unspecified Is this a current diagnosis for this admission?: Yes (4) HTN (hypertension) Qualifiers: Hypertension type: essential hypertension Qualified Code(s): I10 - Essential (primary) hypertension Is this a current diagnosis for this admission?: Yes (5) Obesity Qualifiers: Obesity type: unspecified obesity type Obesity classification: unspecified obesity classification Serious obesity comorbidity presence: unspecified whether serious comorbidity present Qualified Code(s): E66.9 - Obesity, unspecified Is this a current diagnosis for this admission?: Yes (6) Sleep disorder Is this a current diagnosis for this admission?: Yes - Notes Notes: Chest pain: Patient does have cardiac risk factors therefore agree with doing a nuclear stress test. Since patient also describes history of cardiac arrhythmias, a 2D echocardiogram was also scheduled. Patient to report any worsening chest pain. Gastroesophageal reflux: Patient describes history of gastroesophageal reflux. This was treated with IV Protonix following which she felt significantly relieved as regards chest pain. Recommend continuing proton pump inhibitor. Hyperlipidemia: Recommend high potency statin therapy with LDL goal less than 100. Hypertension: Currently stable. Blood pressure goal is 140/90 or less. Obesity: Patient advised in gradual weight loss. Sleep disorder: Patient may have this condition. Discussed that cardiac dysrhythmia can happen in patients with sleep apnea more frequently. Patient was encouraged to get herself screened for sleep apnea. - Time Time Spent: 30 to 50 Minutes - CODE STATUS was discussed, patient remains full code. Surrogate decision-maker unchanged. Multiple medical problems were addressed. More than 50% of the time spent coordinating care, discussing management plans with involved caregivers. Management plans discussed with involved personnels. Medical decision making was of moderate to high complexity , patient's has multiple comorbidities. Medications reviewed and adjusted accordingly: Yes
--- NOTE | 2017-12-26 18:45 | PDOC PROGRESS REPORT ---
Subjective Progress Note for:: 12/26/17 Subjective:: Patient seems to be doing better. No further episodes of chest pain. Currently Pt is denying any chest arm or neck discomfort. Patient denying any PND, orthopnea. Patient denied any sustained palpitations, dizziness, syncope, near syncope. Patient denying any fever chills. Patient denying any other significant discomfort. Patient is maintaining sinus rhythm. Telemetry strips reviewed showed occasional VPCs. Review of systems: Rest review of systems negative. Medications: Medications have been reviewed. Reason For Visit: CHEST PAIN Physical Exam Vital Signs: Temp Pulse Resp BP Pulse Ox 97.7 F 66 16 112/59 L 98 12/26/17 11:27 12/26/17 11:27 12/26/17 11:27 12/26/17 11:27 12/26/17 11:27 Intake & Output 12/25/17 12/26/17 12/27/17 06:59 06:59 06:59 Intake Total 200 1017 Balance 200 1017 Weight 105.4 kg 105.9 kg Exam: GENERAL: well-nourished and in no acute distress. Alert and oriented x3 HEAD: Atraumatic, normocephalic. EYES: Pupils equal round and reactive to light, extraocular movements intact, sclera anicteric, conjunctiva are normal. ENT: TMs normal, nares patent, oropharynx clear without exudates. Moist mucous membranes. No oral ulcerations or bleeding gums noted NECK: supple without lymphadenopathy. Trachea is central. No cervical or axillary lymphadenopathy noted. Carotids are 2+, JVD WNL LUNGS: Respiration seems nonlabored, no significant accessory muscle action noted. Breath sounds clear to auscultation bilaterally and equal noted. No wheezes rales or rhonchi noted. No significant dullness noted on percussion. CHEST: Palpation of the chest wall shows no significant chest wall tenderness. 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 ABDOMEN: Soft, no significant tenderness appreciated, normoactive bowel sounds. No guarding, no rebound. No rigidity noted . No masses appreciated. EXTREMITIES: Pedal pulses are 1-2+, no calf tenderness noted. No clubbing or cyanosis. negative pedal edema noted NEUROLOGICAL: Focused neurological exam showed no significant neurologic deficit. Normal speech, no focal weakness appreciated. PSYCH: Normal mood, normal affect. Judgment and insight within normal limits. SKIN: No significant ecchymosis, skin is noted to be warm. MUSCULOSKELETAL EXAM: No significant acute joint swelling noted. Results Laboratory Results: 12/25/17 04:02 12/25/17 04:02 12/24/17 12/24/17 12/24/17 14:05 15:07 21:55 Troponin I Cancelled < 0.012 < 0.012 NT-Pro-B Natriuret Pep Cancelled 80 12/25/17 04:02 Troponin I NT-Pro-B Natriuret Pep 46 Impressions: Chest X-Ray 12/24/17 09:54 IMPRESSION: NO ACUTE RADIOGRAPHIC FINDING IN THE CHEST. Assessment & Plan - Diagnosis (1) Chest pain Qualifiers: Chest pain type: unspecified Qualified Code(s): R07.9 - Chest pain, unspecified Is this a current diagnosis for this admission?: Yes (2) Gastroesophageal reflux disease Qualifiers: Esophagitis presence: esophagitis presence not specified Qualified Code(s) : K21.9 - Gastro-esophageal reflux disease without esophagitis Is this a current diagnosis for this admission?: Yes (3) Obesity Qualifiers: Obesity type: unspecified obesity type Obesity classification: unspecified obesity classification Serious obesity comorbidity presence: unspecified whether serious comorbidity present Qualified Code(s): E66.9 - Obesity, unspecified Is this a current diagnosis for this admission?: Yes (4) HLD (hyperlipidemia) Qualifiers: Hyperlipidemia type: unspecified Qualified Code(s): E78.5 - Hyperlipidemia , unspecified Is this a current diagnosis for this admission?: Yes (5) HTN (hypertension) Qualifiers: Hypertension type: essential hypertension Qualified Code(s): I10 - Essential (primary) hypertension Is this a current diagnosis for this admission?: Yes - Notes Notes: 2D echo results were reviewed with the patient and son. Nuclear stress test results were again reviewed with the patient. Chest pain: Resolved. Most likely from gastroesophageal reflux. Nuclear images were somewhat suboptimal but did not see any large area of definitive ischemia. Patient however will benefit from aggressive risk factor modification and medical management. Patient encouraged to follow-up with her primary care tacking stitch remover regarding arrhythmias. Patient was informed that currently medical management with is indicated however if she continues with recurrent chest pain, a heart catheterization will also become indicated at that time. Gastroesophageal reflux: Recommend double dose proton pump inhibitor. May consider GI endoscopy. Obesity: Patient has been encouraged in weight loss. Hyperlipidemia: Recommend high potency statin therapy. Hypertension: This is under reasonable control. Patient encouraged to report any further problems. Patient advised in gradual weight loss and possible screening for underlying sleep apnea.
--- NOTE | 2017-12-27 07:54 | PDOC DISCHARGE SUMMARY ---
General - Admit/Disc Date/PCP Admission Date/Primary Care Provider: 12/24/17 12:10 KISHA DE LA TORRE MD Discharge Date: 12/26/17 - Discharge Diagnosis (1) Chest pain Is this a current diagnosis for this admission?: Yes (2) HTN (hypertension) Is this a current diagnosis for this admission?: Yes (3) HLD (hyperlipidemia) Is this a current diagnosis for this admission?: Yes - Additional Information Resuscitation Status: Full Code Discharge Diet: Cardiac Discharge Activity: Activity As Tolerated Home Medications: Aspirin [Adult Low Dose Aspirin EC] 81 mg PO QAM 12/24/17 Ergocalciferol (Vitamin D2) [Drisdol 50,000 unit (1.25MG) Capsule] 50,000 unit PO TU 12/24/17 Hydrochlorothiazide [Hydrodiuril 25 mg Tablet] 25 mg PO QAM 12/24/17 Hydrocodone/Acetaminophen [[place] 5-325 Tablet] 1 tab PO BIDP PRN 12/24/17 Metoprolol Succinate [Toprol Xl 25 mg Tab.sr] 12.5 mg PO QPM 12/24/17 Metoprolol Succinate [Toprol Xl 25 mg Tab.sr] 25 mg PO QAM 12/24/17 Omeprazole Magnesium [Prilosec Otc] 20 mg PO DAILYP PRN 12/24/17 Metoprolol Succinate [Toprol Xl 25 mg Tab.sr] 12.5 mg PO QHS tab.sr.24h Metoprolol Succinate [Toprol Xl 25 mg Tab.sr] 25 mg PO DAILY tab.sr.24h History of Present Illness History of Present Illness: LEILA HIGGINS is a 56 year old female who presented to the emergency department with chest pain. She was scheduled for a routine stress test this morning, she was instructed not to take her morning dose of metoprolol. The patient showed up to her reception specialist's office complaining of shortness of breath and chest tightness. This prompted the medical staff at the reception specialist's office to send the patient to [facility] ED. PMH includes HTN and HLD. Patient recently moved to [place] from [place]. She established care with PHYLLIS Hwang Checker Stocker. Recently was wearing Holter monitor for palpitations, was wearing the monitor for approx. [address] Amaral states that on the Holter monitor the patient had nonsustained episodes of ventricular tachycardia. Her Metoprolol was increased from 25mg PO daily to 25mg PO QAM /12.5 mg PO QHS. Upon arrival to the ED, the patient was treated with PO aspirin 325mg, SL Nitro , and given her home dose of Metoprolol 25mg. EKG demonstrated NSR, no evidence of ischemia or infarction. Troponin<0.012. All other lab work benign. Vital signs wee within normal limits. CXR benign. The patient endorses chest pain relief after medications. Cardiology was consulted, plan for inpatient stress test and ECHOcardiogram tomorrow. Admit to hospitalist service for chest pain. Hospital Course Hospital Course: 56 Y.O. F admitted to [facility] for chest pain. PMH includes HTN, HLD, recent cardiac workup for palpitations. She presented to her cardiologists office on 12/24/2017 for a scheduled stress test. She did not take her metoprolol that morning (as directed by her doctor) and informed the medical staff that morning that she was experiencing chest tightness and SOB. She was subsequently transferred to [facility] ED. The etiology of her chest pain was originally thought to be cardiac in nature, but her EKG and serial troponins were normal. A cardiolite stress test was completed 12/26, the results of that study were also normal. Atypical causes of chest pain were addressed: Xanax for anxiety, Flexeril and tylenol for musclular pain, Zantac BID for reflux. The patient received a one time dose of IV protonix, per the request of Dr. Mays, and the patient stated her chest pain resolved soon after. After 2 days inpatient, Mrs. Higgins was deemed safe for discharge. Her chest pain had resolved, her vital signs were all normal, and her lab work/EKGs were all benign. Her chest pain is believed to be secondary to GERD. The patient reported that she normally takes Prilosec OTC as needed for reflux, but for her discharge plan she was instructed to start taking the medication everyday. Additionally, she could take TUMS as needed for reflux flare-ups. The patient was instructed to follow up with her PMD and reception specialist. She stated full understanding of the discharge instructions. For further information regarding the patient's hospital stay, please refer to the EMR. Physical Exam Vital Signs: Temp Pulse Resp BP Pulse Ox 97.7 F 66 16 112/59 L 98 12/26/17 11:27 12/26/17 11:27 12/26/17 11:27 12/26/17 11:27 12/26/17 11:27 Intake & Output 12/26/17 12/27/17 12/28/17 06:59 06:59 06:59 Intake Total 1017 Balance 1017 Weight 105.9 kg Results Laboratory Results: 12/25/17 04:02 12/25/17 04:02 12/24/17 12/24/17 12/24/17 14:05 15:07 21:55 Troponin I Cancelled < 0.012 < 0.012 NT-Pro-B Natriuret Pep Cancelled 80 12/25/17 04:02 Troponin I NT-Pro-B Natriuret Pep 46 Impressions: Chest X-Ray 12/24/17 09:54 IMPRESSION: NO ACUTE RADIOGRAPHIC FINDING IN THE CHEST. Qualifiers - * PATIENT BEING DISCHARGED WITH ANY OF THE FOLLOWING DIAGNOSIS: No Plan Discharge Plan: DISCHARGE HOME. TAKE PRILOSEC OTC DAILY, TUMS NEEDED. FOLLOW UP WITH SOLID PLASTERER AND PMD. Time Spent: Less than 30 Minutes
== END 2017-12-26 11:45 | disposition home or self-care (01) ==
LOC: ER 09:38 → EH 12:10 → 5 15:33
PROVIDERS: ADMIT Internal Medicine; ATTEND Internal Medicine
DX: R07.89 Other chest pain (principal); I10 Essential (primary) hypertension; E78.5 Hyperlipidemia, unspecified; R06.02 Shortness of breath; K21.9 Gastro-esophageal reflux disease without esophagitis; E66.9 Obesity, unspecified; G47.9 Sleep disorder, unspecified; Z90.49 Acquired absence of other specified parts of digestive tract; Z98.890 Other specified postprocedural states; Z82.49 Family history of ischemic heart disease and other diseases of the circulatory system; Z87.891 Personal history of nicotine dependence; Z68.41 Body mass index [BMI] 40.0-44.9, adult
CPT/HCPCS: 93005 ×2; 99285; 96372; 96374; 36415 ×2; 82553; 82550; 84443; 85025; 85027; 80053 ×2; 81001; 84484; 80061 ×2; 83880 ×2; 93306; 93017; 71045; 78451; 93010 ×2; G0378 ×4; A9500; J2785; S0164 ×3; J1650

== ENCOUNTER → 2017-12-24 | Outpatient (CLI) | payer OTHER | LOC: RAD 07:18 | PROVIDERS: ATTEND Nurse Practitioner Adult Health | DX: I47.1 Supraventricular tachycardia (principal); I47.2 Ventricular tachycardia | CPT/HCPCS: 78451; A9500; Q9969 ==

== ENCOUNTER → 2018-03-23 | Outpatient (CLI) | payer OTHER | LOC: WI 07:05 | PROVIDERS: ATTEND Internal Medicine | DX: Z12.31 Encounter for screening mammogram for malignant neoplasm of breast (principal) | CPT/HCPCS: 77067 ==

== ENCOUNTER → 2018-07-03 | Day surgery (SDC) | payer BC ==
--- NOTE | 2018-07-03 14:56 | RADIOLOGY REPORT (SQ) ---
EXAM DESCRIPTION: ARTHRO SHOULDER INJECTION COMPLETED DATE/TIME: 07/03/2018 2:44 pm REASON FOR STUDY: M25.511 PAIN IN RIGHT SHOULDER M25.511 PAIN IN RIGHT SHOULDER COMPARISON: None. FLUOROSCOPY TIME: 0.01 seconds Spot images saved to PACS. LIMITATIONS: None. PROCEDURE: Procedure, risks, benefits and alternatives explained to patient who then gave written co nsent. The right shoulder was marked and a time out was called for correct procedure verification. P osterior entry site marked using fluoroscopic guidance. Shoulder prepped and draped using sterile te chnique. Local anesthesia achieved using 1% lidocaine injection. Hypodermic needle introduced into the joint space under direct fluoroscopic visualization. Non-ionic contrast instilled to confirm intr a-articular position. Dilute gadolinium solution then injected. Needle removed and entry site covere d with sterile bandage. No immediate complications noted. TECHNIQUE: Digital images acquired during fluoroscopy and stored on PACS. Patient immediately take n to the MR suite for additional imaging. INJECTION LOCATION: Posterior right shoulder. CONTRAST TYPE AND AMOUNT: 10 mL Dotarem/Saline mixture. 1 mL Omnipaque 300 was injected to ensure pr oper positioning. IMPRESSION: SUCCESSFUL NEEDLE PLACEMENT AND INJECTION FOR RIGHT SHOULDER MR ARTHROGRAM USING POSTERI OR APPROACH. COMMENT: Quality ID 145: Final reports for procedures using fluoroscopy that document radiation exp osure indices, or exposure time and number of fluorographic images (if radiation exposure indices are not available) TECHNICAL DOCUMENTATION: JOB ID: [id number] [employer]- All Rights Reserved Reading location - IP/workstation name: [email or web address]
--- NOTE | 2018-07-03 14:57 | RADIOLOGY REPORT (SQ) ---
EXAM DESCRIPTION: FLUORO/NEEDLE PLACEMENT COMPLETE DATE/TIME: 07/03/2018 2:44 pm REASON FOR STUDY: M25.511 PAIN IN RIGHT SHOULDER M25.511 PAIN IN RIGHT SHOULDER FINDINGS: Please see combined report for performance of procedure and radiologic supervision and int erpretation. IMPRESSION: Please see combined report for performance of procedure and radiologic supervision and i nterpretation. Reading location - IP/workstation name: [email or web address]
--- NOTE | 2018-07-03 15:58 | RADIOLOGY REPORT (SQ) ---
EXAM DESCRIPTION: CT RT UPPER EXTREMITY WITH COMPLETED DATE/TIME: 07/03/2018 2:46 pm REASON FOR STUDY: M25.511 PAIN IN RIGHT SHOULDER M25.511 PAIN IN RIGHT SHOULDER COMPARISON: None. TECHNIQUE: Axial imaging performed through the rightshoulder with reformatted oblique coronal and ob lique sagittal imaging windowed for bone and soft tissues. All CT scanners at this facility use dose modulation, iterative reconstruction, and/or weight based d osing when appropriate to reduce radiation dose to as low as reasonably achievable (ALARA). [facility]: Dose Right [facility]: CareDose [facility]: Dose Right [facility]: Teradose 4D [facility]: [employer] RADIATION DOSE: CT Rad equipment meets quality standard of care and radiation dose reduction techniq ues were employed. CTDIvol: 29.2 mGy. DLP: 706 mGy-cm. mGy. LIMITATIONS: None. FINDINGS: There is contrast in the subacromial bursa. Cuff musculature is symmetric. There is a de fect in supraspinatus, full-thickness partial width anteriorly. Remainder of the cuff appears intact . Labrum appears intact. Moderate AC joint arthropathy. Right lung and right axilla unremarkable. IMPRESSION: Partial width full-thickness tear anterior supraspinatus. TECHNICAL DOCUMENTATION: JOB ID: [id number] Quality ID # [id number]: Final reports with documentation of one or more dose reduction techniques (e.g., Au tomated exposure control, adjustment of the mA and/or kV according to patient size, use of iterative reconstruction technique) 2010 [employer]- All Rights Reserved Reading location - IP/workstation name: [email or web address]
== END ==
LOC: RAD 13:34
PROVIDERS: ATTEND Orthopaedic Surgery
DX: M25.511 Pain in right shoulder (principal); M75.111 Incomplete rotator cuff tear or rupture of right shoulder, not specified as traumatic
CPT/HCPCS: 23350; 77002

== ENCOUNTER → 2018-10-07 | Outpatient (CLI) | payer BC ==
--- NOTE | 2018-10-07 14:55 | RADIOLOGY REPORT (SQ) ---
EXAM DESCRIPTION: U/S RETROPERITON (RENAL/AORTA) COMPLETED DATE/TIME: 10/07/2018 2:30 pm REASON FOR STUDY: KIDNEY STONE (N20.0) N20.0 CALCULUS OF KIDNEY COMPARISON: None. TECHNIQUE: Dynamic and static grayscale images acquired of the kidneys and bladder and recorded on P ACS. Additional selected color Doppler and spectral images recorded. LIMITATIONS: None. FINDINGS: RIGHT KIDNEY: Normal size measuring 10.3 cm. Normal echogenicity. 1.3 cm interpolar cyst. No solid or suspicious masses. No hydronephrosis. No calcifications. LEFT KIDNEY: Normal size measuring 12.1 cm. Normal echogenicity. No solid or suspicious masses. Mil d renal pelvis fullness. No caliceal dilation. No calcifications. BLADDER: No masses. OTHER FINDINGS: No other significant finding. IMPRESSION: 1. No nephrolithiasis. 2. Mild fullness of the left renal pelvis. 3. 1.3 cm right renal cyst. TECHNICAL DOCUMENTATION: JOB ID: [id number] [employer]- All Rights Reserved Reading location - IP/workstation name: [email or web address]
== END ==
LOC: RAD 13:27
PROVIDERS: ATTEND Internal Medicine
DX: N20.0 Calculus of kidney (principal)
CPT/HCPCS: 76770

== ENCOUNTER → 2019-02-09 | Outpatient (CLI) | payer BC ==
[2019-02-09 08:39] LABS: ABSOLUTE EOSINOPHILS # (AUTO) 0.1 10^3/uL (0.0-0.6); ABSOLUTE LYMPHOCYTES (AUTO) 2.1 10^3/uL (0.5-4.7); ABSOLUTE MONOCYTES (AUTO) 0.5 10^3/uL (0.1-1.4); ABSOLUTE NEUT (AUTO) 4.8 10^3/uL (1.7-8.2); BASOPHILS % (AUTO) 0.6 % (0-2); EOSINOPHILS % (AUTO) 0.9 % (0-6); HEMATOCRIT 43.4 % (36.0-47.0); HEMOGLOBIN 14.7 g/dL (12.0-15.5); LYMPHOCYTES % (AUTO) 28.5 % (13-45); MEAN CORPUSCULAR HEMOGLOBIN 29.5 pg (27.0-33.4); MEAN CORPUSCULAR HGB CONC 33.9 g/dL (32.0-36.0); MEAN CORPUSCULAR VOLUME 87 fl (80-97); PLATELET COUNT 224 10^3/uL (150-450); RED BLOOD COUNT 4.99 10^6/uL (3.72-5.28); RED CELL DISTRIBUTION WIDTH 13.2 % (11.5-14.0); TOTAL CELLS COUNTED % (AUTO) 100 %; WHITE BLOOD COUNT 7.5 10^3/uL (4.0-10.5)
[2019-02-09 09:03] LABS: ALBUMIN 4.2 g/dL (3.5-5.0); ALKALINE PHOSPHATASE 97 U/L (38-126); ANION GAP 10 (5-19); ASPARTATE AMINO TRANSFERASE 26 U/L (14-36); BILIRUBIN,DIRECT 0.3 mg/dL (0.0-0.4); BILIRUBIN,TOTAL 0.6 mg/dL (0.2-1.3); BLOOD UREA NITROGEN 12 mg/dL (7-20); CALCIUM 9.6 mg/dL (8.4-10.2); CARBON DIOXIDE 33 mmol/L (22-30); CHLORIDE 98 mmol/L (98-107); CHOLESTEROL 243.64 mg/dL (0-200); GLUCOSE 106 mg/dL (75-110); POTASSIUM 4.5 mmol/L (3.6-5.0); TOTAL PROTEIN 7.3 g/dL (6.3-8.2); TRIGLYCERIDES 226 mg/dL (<150)
[2019-02-09 09:15] LABS: DIRECT LDL 162 mg/dL (<100)
[2019-02-09 09:16] LABS: VLDL CHOLESTEROL 45.2 mg/dL (10-31)
== END ==
LOC: OD 07:33
PROVIDERS: ATTEND Family Medicine
DX: I10 Essential (primary) hypertension (principal); E78.2 Mixed hyperlipidemia
CPT/HCPCS: 36415; 80053; 80061; 84443; 85025

== ENCOUNTER → 2019-02-11 | Outpatient (CLI) | payer BC ==
--- NOTE | 2019-02-11 16:44 | RADIOLOGY REPORT (SQ) ---
EXAM DESCRIPTION: U/S NON-OB PELVIS TV W/O DOP COMPLETED DATE/TIME: 02/11/2019 3:24 pm REASON FOR STUDY: R10.2 PELVIC AND PERINEAL PAIN R10.2 PELVIC AND PERINEAL PAIN COMPARISON: None. TECHNIQUE: Dynamic and static grayscale images acquired of the pelvis via transvaginal approach and recorded on PACS. Additional selected color Doppler and spectral images recorded. LIMITATIONS: None. FINDINGS: UTERUS: Surgically absent. RIGHT OVARY AND DOPPLER: Ovary not visualized. LEFT OVARY AND DOPPLER: Ovary not visualized. FREE FLUID: None noted. OTHER: No other significant finding. MEASUREMENTS: UTERUS: Not applicable. ENDOMETRIAL STRIPE: Not applicable. RIGHT OVARY: Not visualized. LEFT OVARY: Not visualized. IMPRESSION: UTERUS IS SURGICALLY ABSENT. OVARIES NOT VISUALIZED. NO SONOGRAPHIC ABNORMALITIES PRES ENT. TECHNICAL DOCUMENTATION: JOB ID: [id number] [employer]- All Rights Reserved Rev-10/17 Reading location - IP/workstation name: [email or web address]
== END ==
LOC: RAD 14:44
PROVIDERS: ATTEND Family Medicine
DX: R10.2 Pelvic and perineal pain (principal)
CPT/HCPCS: 76830

== ENCOUNTER → 2019-03-24 | Outpatient (CLI) | payer BC ==
--- NOTE | 2019-03-24 15:55 | WOMENS IMAGING REPORT ---
EXAM DESCRIPTION: BILAT SCREENING MAMMO W/CAD COMPLETED DATE/TIME: 03/24/2019 1:21 pm REASON FOR STUDY: Z12.31 SCREENING MAMMO Z12.31 ENCNTR SCREEN MAMMOGRAM FOR MALIGNANT NEOPLASM OF B RE COMPARISON: 2018 EXAM PARAMETERS: Standard craniocaudal and mediolateral oblique views of each breast recorded using digital acquisition. Read with the assistance of CAD. .[facility] - [employer] Version 9.2 LIMITATIONS: None. FINDINGS: No suspicious masses, suspicious calcifications or architectural distortion. No areas of c oncern. IMPRESSION: Negative MAMMOGRAM. BIRADS 1 BREAST DENSITY: a. The breasts are almost entirely fatty. BIRAD: ASSESSMENT: 1 NEGATIVE RECOMMENDATION: ROUTINE SCREENING Please continue yearly bilateral screening mammography/tomosynthesis in March 2020 COMMENT: The patient has been notified of the results by letter per [place] requirements. Additional no tification policies are in place for contacting patient with suspicious or incomplete findings. Quality ID #[id number]: The [employer] recommends an annual screening mammogram for women aged 40 years or over. This facility utilizes a reminder system to ensure that all patients receive reminder letters, and/or direct phone calls for appointments. This includes reminders for routine scr eening mammograms, diagnostic mammograms, or other Breast Imaging Interventions when appropriate. Th is patient will be placed in the appropriate reminder system. TECHNICAL DOCUMENTATION: FINDING NUMBER: (1) ASSESSMENT: (1) JOB ID: [id number] [employer]- All Rights Reserved Reading location - IP/workstation name: [email or web address]
== END ==
LOC: WI 12:10
PROVIDERS: ATTEND Family Medicine
DX: Z12.31 Encounter for screening mammogram for malignant neoplasm of breast (principal)
CPT/HCPCS: 77067

== ENCOUNTER → 2019-07-27 | Outpatient (CLI) | payer BC ==
[2019-07-27 09:26] LABS: ABSOLUTE EOSINOPHILS # (AUTO) 0.1 10^3/uL (0.0-0.6); ABSOLUTE LYMPHOCYTES (AUTO) 1.8 10^3/uL (0.5-4.7); ABSOLUTE MONOCYTES (AUTO) 0.5 10^3/uL (0.1-1.4); ABSOLUTE NEUT (AUTO) 4.8 10^3/uL (1.7-8.2); BASOPHILS % (AUTO) 0.4 % (0-2); EOSINOPHILS % (AUTO) 0.7 % (0-6); HEMATOCRIT 41.9 % (36.0-47.0); HEMOGLOBIN 14.4 g/dL (12.0-15.5); LYMPHOCYTES % (AUTO) 25.2 % (13-45); MEAN CORPUSCULAR HEMOGLOBIN 30.1 pg (27.0-33.4); MEAN CORPUSCULAR HGB CONC 34.3 g/dL (32.0-36.0); MEAN CORPUSCULAR VOLUME 88 fl (80-97); MONOCYTES % (AUTO) 6.6 % (3-13); PLATELET COUNT 212 10^3/uL (150-450); RED BLOOD COUNT 4.78 10^6/uL (3.72-5.28); RED CELL DISTRIBUTION WIDTH 12.7 % (11.5-14.0); SEGMENTED NEUTROPHILS % (AUTO) 67.1 % (42-78); TOTAL CELLS COUNTED % (AUTO) 100 %; WHITE BLOOD COUNT 7.1 10^3/uL (4.0-10.5)
[2019-07-27 10:19] LABS: ERYTHROCYTE SEDIMENTATION RATE 32 mm/hr (0-30)
[2019-07-27 10:22] LABS: ALBUMIN 4.1 g/dL (3.5-5.0); ALKALINE PHOSPHATASE 87 U/L (38-126); ANION GAP 8 (5-19); ASPARTATE AMINO TRANSFERASE 29 U/L (14-36); BILIRUBIN,DIRECT 0.1 mg/dL (0.0-0.4); BILIRUBIN,TOTAL 0.6 mg/dL (0.2-1.3); BLOOD UREA NITROGEN 14 mg/dL (7-20); C-REACTIVE PROTEIN 15.5 mg/L (<10.0); CALCIUM 9.5 mg/dL (8.4-10.2); CARBON DIOXIDE 28 mmol/L (22-30); CHLORIDE 104 mmol/L (98-107); GLUCOSE 134 mg/dL (75-110); POTASSIUM 4.4 mmol/L (3.6-5.0); TOTAL PROTEIN 7.2 g/dL (6.3-8.2)
[2019-07-28 11:37] LABS: ANTICHROMATIN AB <0.2 AI (0.0-0.9); CENTROMERE B AB <0.2 AI (0.0-0.9); JO-1 ANTIBODY (ANACOMP) <0.2 AI (0.0-0.9)
== END ==
LOC: OD 08:43
PROVIDERS: ATTEND Family Medicine
DX: M25.50 Pain in unspecified joint (principal)
CPT/HCPCS: 36415; 80053; 84443; 85025; 85652; 86140; 86200; 86225; 86235; 86431

== ENCOUNTER 2020-06-07 08:28 | Emergency (ER) | payer MEDICARE, MEDICAID ==
--- NOTE | 2020-06-07 12:34 | ER Document Report ---
ED General - General Chief Complaint: left leg pain Stated Complaint: FALL/ PELVIC PAIN Time Seen by Provider: 06/07/20 12:06 Primary Care Provider: ORA SOLIS MD [Primary Care Provider] - Follow up as needed TRAVEL OUTSIDE OF THE [place] IN LAST 30 DAYS: No - HPI Notes: Chief complaint: Pelvic pain History of present illness: 59-year-old female with longstanding history of multiple chronic pain issues indicates that she sustained a fall back in March 2020 while [place] and since that time she has had worsening chronic pelvic pain primarily on the right side poorly localized deep in the pelvis at times felt in the right hip and radiating to her vagina. She has had a previous hysterectomy, appendectomy, cholecystectomy and has apparently been told that she has scar tissue in the past. She says her discomfort is getting progressively worse and is aggravated by movement. She indicates that she did not come here primarily for pain medication but rather wants to have some diagnostic studies done to try to find out what is causing the pain. Her primary care doctor apparently recommended plain films but she sa ys that "due to the holidays" she never followed up on this. She denies fever, nausea, vomiting, dysuria or abnormal vaginal discharge or bleeding. - Related Data Allergies/Adverse Reactions: latex Allergy (Unknown, Verified 03/12/19 12:22) Sulfa (Sulfonamide Antibiotics) Allergy (Verified 03/12/19 12:08) Home Medications: cymbalta, hydrocodone, metoprolol, hydrochlorthyazide, prilosec, Past Medical History - General Information source: Patient, [facility] Records - Social History Smoking Status: Former Smoker Frequency of alcohol use: None Drug Abuse: None Family History: CAD Patient has homicidal ideation: No - Past Medical History Cardiac Medical History: Reports: Hx Coronary Artery Disease - HIGH CHOL, Hx Hypercholesterolemia, Hx Hypertension Denies: Hx Congestive Heart Failure, Hx Heart Attack Pulmonary Medical History: Denies: Hx Asthma, Hx Bronchitis, Hx COPD, Hx Pneumonia, Hx Tuberculosis Neurological Medical History: Denies: Hx Cerebrovascular Accident, Hx Seizures, Hx Parkinson's Disease Endocrine Medical History: Denies: Hx Diabetes Mellitus Type 1, Hx Diabetes Mellitus Type 2 Renal/ Medical History: Reports: Hx Kidney Stones. Denies: Hx End Stage Renal Disease, Hx Peritoneal Dialysis Malignancy Medical History: Reports: None GI Medical History: Reports: Hx Gastroesophageal Reflux Disease. Denies: Hx Cirrhosis, Hx Ulcer Musculoskeletal Medical History: Reports Hx Arthritis - FIBROMYALGIA, Denies Hx Multiple Sclerosis Psychiatric Medical History: Reports: Hx Depression Denies: Hx Bipolar Disorder, Hx Schizophrenia Past Surgical History: Reports: Hx Appendectomy, Hx Cholecystectomy, Hx Hysterectomy, Other - HERNIA REPAIR. ECTOPIC . - Immunizations Hx Diphtheria, Pertussis, Tetanus Vaccination: Yes Review of Systems - Review of Systems Notes: Constitutional: As per HPI. HENT: No sore throat or difficulty swallowing Eyes: Negative for drainage. Cardiovascular: Negative for chest pain or palpitations Respiratory: Cough or shortness of breath. Gastrointestinal: As per HPI Genitourinary: Per HPI Musculoskeletal: As per HPI Skin: Negative for rash. Neurological: Negative for focal neurologic symptoms.. 10 point ROS negative except as marked above and in HPI. Physical Exam - Vital signs Vitals: Temp Pulse Resp BP Pulse Ox 98.6 F 92 16 152/88 H 94 06/07/20 08:31 06/07/20 08:31 06/07/20 08:31 06/07/20 08:06/07/20 08:31 - Notes Notes: GENERAL: Moderately obese female of approximately stated age. SKIN: Good turgor no rashes. HEAD: Normocephalic atraumatic. EYES: PERRLA. EOMI. Conjunctivae and sclerae clear. EARS: CANALS AND TMS CLEAR. NOSE: CLEAR. MOUTH: Moist mucosa. Good dentition. No stridor or edema. No drooling. NECK: Supple. No masses or thyromegaly. No adenopathy. Carotids 2+ without bruits. No JVD. BACK: Symmetrical without tenderness. CHEST: Respirations unlabored. Breath sounds clear and symmetrical. HEART: Regular rhythm. No murmur gallop or rub. ABDOMEN: Obese. Multiple healed surgical scars. Mild tenderness right lower quadrant on deep palpation without palpable mass. Soft without organomegaly or rebound. Bowel sounds normally active. No bruits. GENITALIA: Deferred. EXTREMITIES: No edema. No calf tenderness. Cap refill less than 1.5 seconds. Dorsalis pedis and posterior tibial pulses 3+ and symmetrical. NEUROLOGICAL: GCS 15. Alert and oriented x3. Normal gait. Fluent speech. Cranial nerves II through XII intact. Sensorimotor and cerebellar normal. Normal tone. PSYCHIATRIC: Flat affect. Course - Re-evaluation Re-evalutation: 06/07/20 14:44 59-year-old female with very chronic abdominal and pelvic pain. She has had multiple past surgeries including lumbar laminectomy with spinal fusion, appendectomy, cholecystectomy and hysterectomy. She is having no abnormal vaginal bleeding or discharge and no fever. CBC and chemistry profile are relatively unremarkable. Her urinalysis shows no evidence of any acute infe ction. We got a noncontrast CT of abdomen and pelvis. Radiologist did not identify any significant pathology here although he did note several punctate calcifications in both kidneys consistent with small stones. I suppose it is possible that she could be passing small stones intermittently and this might be a contributing factor to her pain. I rather suspect that the greater likelihood is that she is having pain related to intra-abdominal adhesions associated with multiple past surgical procedures. I discussed all this with her in detail. 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 I will also give her the name of a urologist. No new medications are prescribed at this time. Findings, clinical impression and plan of treatment have been discussed with patient/family. Understanding of current findings and recommendations has been acknowledged by them and there is agreement regarding disposition and follow-up. - Vital Signs Vital signs: Temp Pulse Resp BP Pulse Ox 98.6 F 92 16 152/88 H 94 06/07/20 08:31 06/07/20 08:31 06/07/20 08:31 06/07/20 08:31 06/07/20 08:31 - Laboratory Results Result Diagrams: 06/07/20 13:00 06/07/20 13:00 Laboratory Results Interpreted: 06/07/20 13:00 Carbon Dioxide 33 H Glucose 152 H Critical Laboratory Results Reviewed: No Critical Results - Radiology Results Radiology Results Interpreted: 06/07/20 14:43 Abdomen/Pelvis CT 06/07/20 12:17 IMPRESSION: NO SIGNIFICANT OR ACUTE PROCESS IN THE ABDOMEN OR PELVIS. Critical Radiology Results Reviewed: No Critical Results Discharge - Discharge Clinical Impression: Chronic pelvic pain in female, Nephrolithiasis Condition: Stable Disposition: HOME, SELF-CARE Additional Instructions: After an extensive evaluation in the emergency department today we have not found any condition that requires admission or emergency surgery. The greatest likelihood is that your chronic pain in the pelvic area is related to scar tissue or adhesions inside the abdomen related to your multiple past surgical procedures. Additionally you have multiple small stones in both kidneys and you could be passing small stones intermittently contributing to your discomfort. Recommend that she continue pain management visits to control your symptoms. Additionally recommend that she go back and discuss today's findings with your primary care doctor at your earliest convenience. We will also give you the name of urology specialist you could see to explore the possibility that some of your discomfort may be related to intermittently passing small kidney stones. Return here as needed for new or worsening symptoms: Pain that is worsening or unimproved Uncontrolled vomiting High fever or shaking chills Overall worsening Referrals: ORA SOLIS MD [Primary Care Provider] - Follow up as needed MIRLANDE MCKEON MD [NO LOCAL MD] - Follow up as needed
[2020-06-07 12:36] LABS: APPEARANCE,URINE CLEAR; BILIRUBIN,URINE NEGATIVE (NEGATIVE); COLOR,URINE YELLOW; GLUCOSE, URINE NEGATIVE (NEGATIVE); KETONES,URINE NEGATIVE (NEGATIVE); LEUKOCYTE ESTERASE,URINE NEGATIVE (NEGATIVE); NITRITE,URINE NEGATIVE (NEGATIVE); PROTEIN,URINE NEGATIVE (NEGATIVE); URINE SPECIFIC GRAVITY 1.026; UROBILINOGEN,URINE NEGATIVE mg/dL (<2.0)
--- NOTE | 2020-06-07 12:59 | RADIOLOGY REPORT (SQ) ---
EXAM DESCRIPTION: CT ABD/PELVIS NO ORAL OR IV IMAGES COMPLETED DATE/TIME: 06/07/2020 12:32 pm REASON FOR STUDY: Pelvic pain COMPARISON: None. TECHNIQUE: CT scan of the abdomen and pelvis performed without intravenous or oral contrast. Images reviewed with lung, soft tissue, and bone windows. Reconstructed coronal and sagittal MPR images revi ewed. All images stored on PACS. All CT scanners at this facility use dose modulation, iterative reconstruction, and/or weight based d osing when appropriate to reduce radiation dose to as low as reasonably achievable (ALARA). [facility]: Dose Right [facility]: CareDose [facility]: Dose Right [facility]: Teradose 4D [facility]: Smart [employer] RADIATION DOSE: CT Rad equipment meets quality standard of care and radiation dose reduction techniq ues were employed. CTDIvol: 22.0 mGy. DLP: 1163 mGy-cm.mGy. LIMITATIONS: None. FINDINGS: LOWER CHEST: No significant findings. No nodules or infiltrates. NON-CONTRASTED LIVER, SPLEEN, ADRENALS: Evaluation limited by lack of IV contrast. No identified sign ificant masses. PANCREAS: No masses. No peripancreatic inflammatory changes. GALLBLADDER: Surgically absent. RIGHT KIDNEY AND URETER: No suspicious masses. Assessment limited by lack of IV contrast. 3 punctat e nonobstructing nephroliths. No hydronephrosis or hydroureter. LEFT KIDNEY AND URETER: No suspicious masses. Assessment limited by lack of IV contrast. 1 punctate nonobstructing nephrolith. No hydronephrosis or hydroureter. AORTA AND RETROPERITONEUM: No aneurysm. No retroperitoneal masses or adenopathy. BOWEL AND PERITONEAL CAVITY: No obvious masses or inflammatory changes. No free fluid. APPENDIX: Normal. PELVIS, BLADDER, AND ABDOMINAL WALL:No masses. No free fluid. The bladder is largely decompressed. There is a fat containing umbilical hernia. BONES: Status post L4-S1 posterior fusion without evidence of gross hardware complication. No acute findings. No suspicious lytic or blastic osseous lesions. OTHER: No other significant finding. IMPRESSION: NO SIGNIFICANT OR ACUTE PROCESS IN THE ABDOMEN OR PELVIS. COMMENT: Quality ID # [id number]: Final reports with documentation of one or more dose reduction techniques (e.g., Automated exposure control, adjustment of the mA and/or kV according to patient size, use of iterative reconstruction technique) TECHNICAL DOCUMENTATION: JOB ID: [id number] 2010 [employer]- All Rights Reserved Reading location - IP/workstation name: [email or web address]
[2020-06-07 13:10] LABS: ABSOLUTE BASOPHILS # (AUTO) 0.1 10^3/uL (0.0-0.2); ABSOLUTE EOSINOPHILS # (AUTO) 0.1 10^3/uL (0.0-0.6); ABSOLUTE LYMPHOCYTES (AUTO) 2.9 10^3/uL (0.5-4.7); ABSOLUTE MONOCYTES (AUTO) 0.7 10^3/uL (0.1-1.4); ABSOLUTE NEUT (AUTO) 4.8 10^3/uL (1.7-8.2); BASOPHILS % (AUTO) 0.7 % (0-2); HEMATOCRIT 40.3 % (36.0-47.0); HEMOGLOBIN 13.6 g/dL (12.0-15.5); MEAN CORPUSCULAR HEMOGLOBIN 28.8 pg (27.0-33.4); MEAN CORPUSCULAR HGB CONC 33.8 g/dL (32.0-36.0); MEAN CORPUSCULAR VOLUME 85 fl (80-97); MONOCYTES % (AUTO) 7.9 % (3-13); PLATELET COUNT 260 10^3/uL (150-450); RED BLOOD COUNT 4.73 10^6/uL (3.72-5.28); RED CELL DISTRIBUTION WIDTH 12.8 % (11.5-14.0); SEGMENTED NEUTROPHILS % (AUTO) 56.4 % (42-78); TOTAL CELLS COUNTED % (AUTO) 100 %; WHITE BLOOD COUNT 8.4 10^3/uL (4.0-10.5)
[2020-06-07 13:29] LABS: ALBUMIN 3.9 g/dL (3.5-5.0); ALKALINE PHOSPHATASE 107 U/L (38-126); ANION GAP 8 (5-19); ASPARTATE AMINO TRANSFERASE 27 U/L (14-36); BILIRUBIN,DIRECT 0.3 mg/dL (0.0-0.4); BILIRUBIN,TOTAL 0.6 mg/dL (0.2-1.3); BLOOD UREA NITROGEN 15 mg/dL (7-20); CALCIUM 9.5 mg/dL (8.4-10.2); CARBON DIOXIDE 33 mmol/L (22-30); CHLORIDE 98 mmol/L (98-107); GLUCOSE 152 mg/dL (75-110); POTASSIUM 3.8 mmol/L (3.6-5.0); TOTAL PROTEIN 7.4 g/dL (6.3-8.2)
[2020-06-07 15:34] VITALS: BP 148/84
== END 2020-06-07 15:33 | disposition home or self-care (01) ==
LOC: ER 08:28
DX: N20.0 Calculus of kidney (principal); G89.29 Other chronic pain; R10.2 Pelvic and perineal pain; M79.605 Pain in left leg; E66.9 Obesity, unspecified; E78.00 Pure hypercholesterolemia, unspecified; I10 Essential (primary) hypertension; Z91.040 Latex allergy status; Z88.2 Allergy status to sulfonamides; Z87.442 Personal history of urinary calculi; Z90.49 Acquired absence of other specified parts of digestive tract; Z90.710 Acquired absence of both cervix and uterus; Z98.1 Arthrodesis status
CPT/HCPCS: 36415; 74176; 80053; 81001; 85025; 99284